=== PATIENT | male | born 1970 | race Caucasian/White ===

== ENCOUNTER 2020-05-14 13:29 | Outpatient (CLI) | payer MEDICARE | END 2020-05-14 23:59 | disposition home or self-care (01) | LOC: OPD 13:29 | PROVIDERS: ATTEND Internal Medicine Hematology & Oncology | DX: Z45.2 Encounter for adjustment and management of vascular access device (principal); C20 Malignant neoplasm of rectum | CPT/HCPCS: 36569; C1751 ==

== ENCOUNTER 2020-06-10 11:13 | Inpatient (IN) | payer MEDICARE, OTHER ==
[~2020-06-10] VITALS: Ht 167.6 cm; Wt 58.5 kg
--- NOTE | 2020-06-10 11:36 | NUR ---
ZULAY (SISTER) SAYS PT IS DRUG ADDICT, NEED TO BE MEDICATED AND IS FLIGHT RISK
[2020-06-10] MEDS ORDERED: DEXT20TA6 MT (11:41)
[2020-06-10] MEDS ORDERED: CYCL10TA9 MT (11:41)
[2020-06-10] MEDS ORDERED: HYDR-3980 MT (11:41)
--- NOTE | 2020-06-10 11:41 | NUR ---
ENGINEERING SECRETARY AT BEDSIDE
[2020-06-10 11:58] LABS: BASOPHILS % (AUTO) 0.3 % (0.0-2.0); EOSINOPHILS % (AUTO) 0.7 % (0.0-6.0); HEMATOCRIT 29 % (39-51); HEMOGLOBIN 9.1 g/dL (13.5-17.5); LYMPHOCYTES % (AUTO) 6.8 % (20.0-44.0); MEAN CORPUSCULAR HGB CONC 32 g/dl (31.0-36.0); MEAN CORPUSCULAR VOLUME 79 fL (80-96); MONOCYTES # (AUTO) 1.1 /CMM (0.1-1.30); MONOCYTES % (AUTO) 7.8 % (2.0-12.0); NEUTROPHILS # (AUTO) 12.4 /CMM (1.8-8.9); NEUTROPHILS % (AUTO) 84.4 % (43.0-81.0); PLATELET COUNT (AUTO) 399 /CMM (150-450); RED BLOOD CELL COUNT(AUTO) 3.65 MIL/uL (4.5-6.0); WHITE BLOOD COUNT (AUTO) 14.7 K/uL (4.3-11.0)
[2020-06-10] MEDS ORDERED: IV NS 0.9% 1,000 ML BAG IV ONE (12:00)
[2020-06-10 12:12] LABS: ALBUMIN 2.9 g/dL (3.4-5.0); BILIRUBIN,TOTAL 0.2 mg/dL (0.2-1.0); CREATININE 0.9 mg/dL (0.6-1.3); POTASSIUM 3.1 mmol/L (3.5-5.1)
--- NOTE | 2020-06-10 12:25 | NUR ---
PT'S DAUGHTER, NGUYEN, CALLED FOR A UPDATE.
[2020-06-10] MEDS ORDERED: NALO4SPR BNOSTRILS (12:26)
[2020-06-10] MEDS ORDERED: IOHEXOL-300 100 ML VIAL IV ONE (12:35)
[2020-06-10] MEDS ORDERED: IV NS 0.9% 250 ML IV ONE (12:35)
[2020-06-10] MEDS ORDERED: MORPHINE SULFATE INJ 2 MG/ML DISP.SYRIN IV ONE (13:30)
[2020-06-10] MEDS ORDERED: MORPHINE SULFATE INJ 4 MG/ML DISP.SYRIN ONE (13:31)
--- NOTE | 2020-06-10 14:09 | NUR ---
GOT BED 308-2
--- NOTE | 2020-06-10 14:20 | NUR ---
REPORT GIVEN TO JENI SUAREZ
--- NOTE | 2020-06-10 14:23 | NUR ---
DR WEBER INSTRUCTED TO PLACE PATIENT ON NPO, MADE PATIENT AND JENI RN AWARE, PATIENT VERBALIZED UNDERSTANDING OF INSTRUCTION
[2020-06-10] MEDS ORDERED: MAGNESIUM HYDROXIDE 30 ML UDC PO PRN (15:00)
[2020-06-10] MEDS ORDERED: ACETAMINOPHEN 325 MG TABLET PO PRN (15:00)
[2020-06-10] MEDS ORDERED: ONDANSETRON HCL/PF 4 MG/2 ML VIAL IVP PRN (15:00)
[2020-06-10] MEDS ORDERED: ZOLPIDEM TARTRATE 5 MG TABLET PO PRN (15:00)
[2020-06-10] MEDS ORDERED: MAG HYDROX/AL HYDROX/SIMETH 30 ML UDC PO PRN (15:00)
[2020-06-10] MEDS ORDERED: Z GUARD REMEDY 2 OZ OINT TP PRN (15:00)
[2020-06-10] MEDS ORDERED: HYDROCODONE/APAP 5/325MG 1 EACH TABLET PO PRN (15:00)
[2020-06-10] MEDS: MORPHINE SULFATE INJ 2 MG/ML DISP.SYRIN IV PRN ×2 (15:13→19:57)
[2020-06-10] MEDS: IV D5/0.45 NACL 1,000 ML IV PRN (15:15)
[2020-06-10] MEDS ORDERED: FEE PK DOSING 1 MIN EA MC ONE (15:21)
[2020-06-10] MEDS ORDERED: PIPERACILLIN /TAZOBACTAM 3.375 G in IV D5W 50 ML IV ONE (16:00)
[2020-06-10] MEDS: VANCOMYCIN 0.75 GM in IV D5W 250 ML IV SCH (16:48)
--- NOTE | 2020-06-10 18:00 | NUR ---
rn notes patient remains on room air, a/o x4 and was agitated. Calm now and asleep. Refused skin assessment and will try again later. Colostomy present. JUSTYN picc line present, able to take fluids and abx, but is not drawing any blood. 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 Might have used last night. Homeless at times. Pending consent for CT perc drain abscess, patient does not want to sign for now because he wants to talk to [facility] HEEL SEAT FILLER before anything. [facility] HEEL SEAT FILLER aware. IV d5 1/2 NS @ 75 ml per hour. Bed at the lowest setting, call light within reach, side rails up x2. NPO for now.
[2020-06-10] MEDS ORDERED: PEG 3350/NA SULF,BICARB,CL/KCL 4,000 ML BOTTLE PO ONE (19:00)
--- NOTE | 2020-06-10 19:00 | NUR ---
RN OPENING NOTES Received patient asleep on bed, on RA. No s/sx of discomfort noted at this time. Per report patient has just rested and calmed down after an episode of agitation. No skin assessment was done and defer the procedure at this time to give time for patient to rest. Will continue to monitor the patient closely.
[2020-06-10 20:00] VITALS: BP 151/77
[2020-06-10] MEDS: DOCUSATE SODIUM 100 MG CAPSULE PO SCH (20:02)
--- NOTE | 2020-06-10 20:45 | NUR ---
RN NOTES Followed up Rx for Gololiverly order. Awaiting for meds at this time.
--- NOTE | 2020-06-10 21:51 | NUR ---
RN NOTES Reinforced to patient the importance of taking Golytely. Pt verbalized "I will take it later." Pt noted asleep at this time, snoring. Will continue to monitor closely.
[2020-06-10] MEDS: PIPERACILLIN /TAZOBACTAM 3.375 G in IV D5W 100 ML IV SCH (22:09)
--- NOTE | 2020-06-10 22:30 | NUR ---
RN NOTES Pt was yelling for nurse to disconnect the IV line as he wanted to walk into the bathroom. Upon returning on bed, encourage pt resume IV ATB. Patient refused, turned his back and cover his head with the blanket. As of this time, patient has no intake of the Golytely. Will continue to encourage patient after a while.
[2020-06-11] MEDS: PIPERACILLIN /TAZOBACTAM 3.375 G in IV D5W 100 ML IV SCH ×4 (05:45→22:14)
--- NOTE | 2020-06-11 05:46 | NUR ---
RN NOTES Offered to patient due meds IV ATB at this time. Pt yelled the nurse "leave me alone" then turn his back and cover under the blanket.
--- NOTE | 2020-06-11 07:12 | NUR ---
RN CLOSING NOTES Pt refused meds but was able to convinced in AM. Administer IVF and IV ATB as ordered. Pt on bed comfortably. All nursing needs attended. Pt minimally took Golytely, not clear at this time. Dr. Collado notified with order to administer tap enema. Endorsed to the next shift.
[2020-06-11] MEDS: PANTOPRAZOLE 40 MG TABLET.DR PO SCH (07:30)
[2020-06-11 07:54] LABS: BASOPHILS % (AUTO) 0.1 % (0.0-2.0); EOSINOPHILS % (AUTO) 0.1 % (0.0-6.0); HEMATOCRIT 31 % (39-51); HEMOGLOBIN 9.8 g/dL (13.5-17.5); LYMPHOCYTES # (AUTO) 0.8 /CMM (0.8-4.8); LYMPHOCYTES % (AUTO) 4.3 % (20.0-44.0); MEAN CORPUSCULAR HGB CONC 31 g/dl (31.0-36.0); MEAN CORPUSCULAR VOLUME 77 fL (80-96); MONOCYTES # (AUTO) 1.6 /CMM (0.1-1.30); MONOCYTES % (AUTO) 8.4 % (2.0-12.0); NEUTROPHILS # (AUTO) 16.7 /CMM (1.8-8.9); NEUTROPHILS % (AUTO) 87.1 % (43.0-81.0); PLATELET COUNT (AUTO) 415 /CMM (150-450); RED BLOOD CELL COUNT(AUTO) 4.06 MIL/uL (4.5-6.0); WHITE BLOOD COUNT (AUTO) 19.2 K/uL (4.3-11.0)
[2020-06-11 07:59] LABS: CALCIUM, SERUM 8.8 mg/dL (8.5-10.1); CREATININE 0.7 mg/dL (0.6-1.3); MAGNESIUM 1.9 mg/dL (1.8-2.4); PHOSPHORUS 3.3 mg/dL (2.5-4.9)
[2020-06-11 08:00] VITALS: BP 155/74
[2020-06-11] MEDS: VANCOMYCIN 0.75 GM in IV D5W 250 ML IV SCH ×3 (08:00)
[2020-06-11 08:05] LABS: POTASSIUM 2.8 mmol/L (3.5-5.1)
--- NOTE | 2020-06-11 08:05 | NUR ---
MS RN NOTES HELD PO MEDS. PATIENT SCHEDULED FOR COLONOSCOPY
--- NOTE | 2020-06-11 08:30 | NUR ---
MS RN NOTES PATIENT'S SISTER: NGUYEN CALLED AND STATED THAT PATIENT LIVES IN [place] RENTING HIS OWN ROOM . PER NGUYEN, PATIENT IS A DRUG USER AND ETOH. PATIENT USED TO LIVE WITH FATHER BUT SINCE FATHER PAST AWAY IN 2016, PATIENT [place]IVES ON THE [address]RE[address]. PER NGUYEN, PATIENT HAS ADHD WELL. IN February PATIENT WAS ADMITTED IN [place] WITH AN EMERGENCY COLOSTOMY DONE BY DR. ANDREWS THEN 3 DAYS AFTER PATIENT LEFT [place] BECAUSE HE CAN GET BETTER DRUGS FOR PAIN ON THE STREET. THEN ON MARCH 04 OR PATIENT WENT BACK TO [place] THEN HE WAS TRANSFERRED TO [facility] IN [facility] THEN ON MARCH 21 HE WAS TRANSFERRED IN [place] WHERE PEOPLE CAN COME AND GO WITHOUT MEDICAL INVOLVEMENT PER NGUYEN. PER NGUYEN PATIENT IS ALSO BEING FOLLOWED BY DR. ESCOBAR. PATIENT ALSO HAS HISTORY OF NON-COMPLIANT WITH REFUSAL OF CARE AND WAS IN [facility] AND HE LEFT [place] WELL PER NGUYEN.
[2020-06-11] MEDS: DOCUSATE SODIUM 100 MG CAPSULE PO SCH ×2 (09:00→17:51)
--- NOTE | 2020-06-11 09:20 | NUR ---
MS RN NOTES PATIENT REFUSED TO HAVE CLOTHES REMOVED AND CHANGE INTO GOWN FOR COLONOSCOPY PROCEDURE DESPITE OF EDUCATION AND EXPLANATIONS PROVIDED.
--- NOTE | 2020-06-11 09:30 | NUR ---
MS RN NOTES PATIENT LEFT UNIT, WENT TO OR FOR COLONOSCOPY.
--- NOTE | 2020-06-11 09:41 | NUR ---
MS RN NOTES PATIENT BROUGHT TO UNIT AND CANCELLED PROCEDURE DUE TO LOW POTASSIUM LEVEL.
[2020-06-11] MEDS: POTASSIUM CHLORIDE 20 MEQ TAB.PRT.SR PO SCH ×2 (10:00→10:37)
--- NOTE | 2020-06-11 10:47 | NUR ---
MS RN NOTES PATIENT REFUSED POTASSIUM ORDERED DUE TO LOW POTASSIUM LEVEL. PATIENT STRONGLY REFUSED DESPITE OF EDUCATION AND EXPLANATIONS PROVIDED.
--- NOTE | 2020-06-11 12:35 | NUR ---
MS RN NOTES PATIENT AGREED TO HAVE VANCOMYCIN ADMINISTERED. PHARMACY MADE AWARE.
[2020-06-11] MEDS ORDERED: POTASSIUM CHLORIDE 10 MEQ/50 ML PREMIXED IVPB FOR PERIPHERAL LINE IV ONE (13:00)
[2020-06-11] MEDS: POTASSIUM CL. PREMIX PERIPHER. 50 ML IV SCH ×10 (13:33→22:47)
--- NOTE | 2020-06-11 13:41 | NUR ---
MS RN NOTES PATIENT REFUSED IV FLUIDS AND IV POTASSIUM.
[2020-06-11] MEDS: VANCOMYCIN 1 GM in IV D5W 250 ML IV SCH ×3 (13:55→20:38)
--- NOTE | 2020-06-11 14:00 | NUR ---
MS RN NOTES PATIENT THREW LUNCH TRAY AND BEDSIDE TABLE ON THE GROUND.
--- NOTE | 2020-06-11 14:02 | NUR ---
MS RN NOTES PATIENT REFUSED IV FLUIDS, IV ATB AND IV POTASSIUM. DR. BOWLES MADE AWARE OF PATIENT'S NON-COMPLIANT.
[2020-06-11] MEDS: MORPHINE SULFATE INJ 2 MG/ML DISP.SYRIN IV PRN ×2 (14:29→20:31)
--- NOTE | 2020-06-11 14:35 | NUR ---
MS RN NOTES PATIENT AGREED TO RECEIVED IV FLUIDS /ATB AND POTASSIUM.
[2020-06-11] MEDS ORDERED: HYDROCODONE/APAP 10/325MG 1 EA TABLET PO PRN (17:00)
[2020-06-11] MEDS: MORPHINE SULFATE SR 15 MG TABLET.SA PO SCH (18:11)
--- NOTE | 2020-06-11 19:05 | NUR ---
MS RN NOTE COVID TEST DONE, SENT TO LAB.
--- NOTE | 2020-06-11 19:15 | NUR ---
MS RN NOTES PATIENT RESTING COMFORTABLY IN BED. ASLEEP. AROUSABLE TO VERBAL AND TACTILE STIMULI. NO S/S OF RESPIRATORY DISTRESS. HOB ELEVATED. LEFT UPPER ARM PICC LINE INTACT INFUSING D5 1/2 NS AT 75 ML/HR. POTASSIUM 10 MEQ/50ML STILL INFUSING AT 50ML/HR DELFINO WELL. DURING THE SHIFT PATIENT WITH EPISODE OF NON-COMPLIANCE WITH CARE AND REFUSAL OF CARE, AGGRESSIVE, YELLING, AND THROWING ANYTHING WITHIN REACH.FREQUENT VISUAL CHECK DONE. BED IN LOWEST POSITION, LOCKED. BED ALARM ON. CALL LIGHT WITHIN REACH.IN NO APPARENT DISTRESS.
--- NOTE | 2020-06-11 19:30 | NUR ---
RN OPENING NOTES Received patient asleep on bed, on RA. No s/sx of discomfort noted at this time. Pt refused to be changed on bed. With Potassium 10mEq per 50ml bag 4 of 8 infusing well as ordered. Call light within easy reach. Will continue to monitor accordingly.
[2020-06-11] MEDS: IV D5/0.45 NACL 1,000 ML IV PRN (20:38)
[2020-06-11] MEDS: MIRTAZAPINE 15 MG TABLET PO SCH (22:14)
[2020-06-12] MEDS: MORPHINE SULFATE INJ 2 MG/ML DISP.SYRIN IV PRN ×5 (00:34→22:36)
[2020-06-12] MEDS: VANCOMYCIN 1 GM in IV D5W 250 ML IV SCH ×3 (04:59→20:12)
[2020-06-12] MEDS: PIPERACILLIN /TAZOBACTAM 3.375 G in IV D5W 100 ML IV SCH ×3 (06:01→21:29)
[2020-06-12] MEDS: PANTOPRAZOLE 40 MG TABLET.DR PO SCH (06:34)
--- NOTE | 2020-06-12 06:58 | NUR ---
RN CLOSING NOTES Patient asleep on bed. Good perineal care done. Due meds given as ordered. Pt is for MRI today, checklist initiated, patient verbalized to sign the form after breakfast. Still on pending colonoscopy, pt refused tap enema as ordered at this time. All nursing needs attended. Afebrile the whole shift. Medicated for pain, noted effective. Endorsed.
[2020-06-12 08:10] LABS: BASOPHILS % (AUTO) 0.1 % (0.0-2.0); EOSINOPHILS % (AUTO) 0.1 % (0.0-6.0); HEMATOCRIT 31 % (39-51); HEMOGLOBIN 9.8 g/dL (13.5-17.5); LYMPHOCYTES # (AUTO) 0.8 /CMM (0.8-4.8); LYMPHOCYTES % (AUTO) 4.2 % (20.0-44.0); MEAN CORPUSCULAR HGB CONC 32 g/dl (31.0-36.0); MEAN CORPUSCULAR VOLUME 77 fL (80-96); MONOCYTES # (AUTO) 1.8 /CMM (0.1-1.30); MONOCYTES % (AUTO) 10.1 % (2.0-12.0); NEUTROPHILS # (AUTO) 15.4 /CMM (1.8-8.9); NEUTROPHILS % (AUTO) 85.5 % (43.0-81.0); PLATELET COUNT (AUTO) 413 /CMM (150-450); RED BLOOD CELL COUNT(AUTO) 4.01 MIL/uL (4.5-6.0)
[2020-06-12 09:05] LABS: CALCIUM, SERUM 8.8 mg/dL (8.5-10.1); CREATININE 0.7 mg/dL (0.6-1.3); MAGNESIUM 2.1 mg/dL (1.8-2.4); PHOSPHORUS 2.6 mg/dL (2.5-4.9); POTASSIUM 3.2 mmol/L (3.5-5.1)
[2020-06-12 09:22] LABS: THYROID STIMULATING HORMONE 0.168 uIU/mL (0.358-3.74)
--- NOTE | 2020-06-12 10:00 | NUR ---
MS RN NOTES-- PT SCHEDULED TO GET A COLOSCOPY TOMORROW. PT REFUSES BOWEL PREP. DR. BOWLES MADE AWARE.
[2020-06-12] MEDS: DIVALPROEX SODIUM 125 MG CAP.SPRINK PO SCH ×3 (10:26→17:00)
[2020-06-12] MEDS: MORPHINE SULFATE SR 15 MG TABLET.SA PO SCH ×2 (10:26→20:12)
[2020-06-12] MEDS: DOCUSATE SODIUM 100 MG CAPSULE PO SCH ×2 (10:26→17:00)
[2020-06-12] MEDS: IV D5/0.45 NACL 1,000 ML IV PRN (10:32)
[2020-06-12] MEDS ORDERED: POTASSIUM CHLORIDE 20 MEQ TAB.PRT.SR PO ONE (14:30)
--- NOTE | 2020-06-12 15:34 | NUR ---
MS RN NOTES-- PT SCHEDULED TO GET A COLOSCOPY TOMORROW. PT REFUSES BOWEL PREP. NOTED WITH 100F TEMP, PT REFUSES TYL BUT WANTS WARM BLANKETS. EXPLAINED INTERVENTIONS TO LOWER TEMP, PT REFUSED. PT BECAME IMPULSIVE. DR. BOWLES MADE AWARE.
[2020-06-12 16:00] VITALS: BP 121/78
--- NOTE | 2020-06-12 18:17 | NUR ---
MS RN END OF SHIFT SUMMARY PT IS A/OX4, AFEBRILE. RESPIRATIONS ARE EVEN AND UNLABORED, NOT IN ANY ACUTE DISTRESS NOTED. PT IS VERY IMPULSIVE AND VERBALLY AGGRESSIVE. PAIN MANAGED BY MORPHINE IVP PRN. ABDOMEN IS SOFT AND NONDISTENDED, BOWEL SOUNDS ARE PRESENT IN ALL 4 QUADRANTS UPON AUSCULTATION. MULTIPLE BMS DURING SHIFT THROUGH RECTUM. COLOSTOMY IN PLACE, NOTED WITH FLATUS, NO BM. VOIDS. TOLERATING PO W/ NO C/O N/V, HOWEVER REFUSES TO EAT CLEAR LIQUID BROTH OTHER THAN JELLO AND JUICE. PICC LINE TO JUSTYN INTACT, DRESSING CDI. PT REFUSES MIVF MULTIPLE TIMES. EXPLAINED THE IMPORTANCE OF MIVF, STILL NONCOMPLIANT. FRIEND SLIME CALLED AND PT THREW PHONE ACROSS THE ROOM. CALL LIGHT IS LEFT WITHIN REACH. WILL MONITOR AND CONTINUE POC.
--- NOTE | 2020-06-12 19:15 | NUR ---
MS RN NOTES RECEIVED PT IN BED RESTING. PT A/O X3. RESPIRATIONS EVEN AND UNLABORED WITH NO S/S OF ACUTE DISTRESS OR SOB NOTED. PT NOTED WITH JUSTYN PICC LINE. NO COMPLAINTS OF PAIN AT THIS TIME. SAFETY MEASURES IN PLACE WITH BED IN LOWEST LOCKED POSITION WITH SIDE RAILS UP X2. CALL LIGHT WITHIN REACH. WILL CONTINUE TO MONITOR.
--- NOTE | 2020-06-12 19:47 | NUR ---
MS RN NOTES PT VERBALLY ABUSIVE. PT CURSING AND YELLING. PT STATING "YOU GUYS ARE IN FOR A LONG NIGHT, WAIT AND YOU WILL SEE." WILL CONTINUE TO MONITOR.
[2020-06-12 20:00] VITALS: BP 130/82
--- NOTE | 2020-06-12 20:12 | NUR ---
MS RN NOTES PT REFUSED IV ANTIBIOTICS WELL IV FLUIDS AT THIS TIME. PT STATED "WHAT YOUR GOING TO DO IS GIVE ME THE PAIN MEDICATION AND NOTHING ELSE AND LEAVE." WILL CONTINUE TO MONITOR.
--- NOTE | 2020-06-12 20:45 | NUR ---
MS RN NOTES PT NOTED WITH ELEVATED TEMP, PT REFUSED COOLING MEASURES AND TYLENOL. PT STATED "JUST GIVE ME A BLANKET AND GET OUT OF HERE." WILL CONTINUE TO MONITOR.
--- NOTE | 2020-06-12 20:50 | NUR ---
MS RN NOTES PT IN BATHROOM SCREAMING. WENT TO PT TO ASK WHAT IS WRONG. PT STATED "GET OUT OF HERE LEAVE ME ALONE, I DON'T WANT TO TALK TO ANYONE." WILL CONTINUE TO MONITOR.
--- NOTE | 2020-06-12 21:29 | NUR ---
MS RN NOTES PT REFUSED 2ND ANTIBIOTIC AT THIS TIME. PT STATED "I DON'T WANT TO BE HOOKED UP AT THIS TIME, I JUST WANT TO SLEEP, LEAVE ME ALONE." EXPLAINED THAT HE COULD BE HOOKED UP WHILE HE WAS SLEEPING AND PT STARTED YELLING AND TOLD ME TO GET OUT OF HIS ROOM. WILL CONTINUE TO MONITOR.
[2020-06-12] MEDS: MIRTAZAPINE 15 MG TABLET PO SCH ×2 (21:31→22:35)
--- NOTE | 2020-06-12 21:31 | NUR ---
MS RN NOTES PT REFUSED REMERON AT THIS TIME. WILL CONTINUE TO MONITOR.
--- NOTE | 2020-06-12 22:35 | NUR ---
MS RN NOTES PT CHANGED MIND ABOUT REMERON AT THIS TIME. WILL CONTINUE TO MONITOR.
--- NOTE | 2020-06-13 | NUR ---
MS RN NOTES PT IN BED RESTING WITH NO S/S OF ACUTE DISTRESS OR SOB NOTED. WILL CONTINUE TO MONITOR.
[2020-06-13] MEDS: VANCOMYCIN 1 GM in IV D5W 250 ML IV SCH ×3 (05:00→20:08)
[2020-06-13] MEDS: PIPERACILLIN /TAZOBACTAM 3.375 G in IV D5W 100 ML IV SCH ×3 (05:40→22:19)
--- NOTE | 2020-06-13 05:40 | NUR ---
MS RN NOTES PT REFUSED BOTH VANCO AND ZOSYN AT THIS TIME. PT STATED "I JUST WANT TO BE LEFT ALONE RIGHT NOW AND SLEEP," AND PT STARTED TO YELL. EXPLAINED TO PT THAT THE MEDICATION IS NEEDED TO GET BETTER, PT STATED "I KNOW, I KNOW JUST LEAVE ME ALONE, I DON'T WANT ANY OF THAT JUST LEAVE ME ALONE." WILL CONTINUE TO MONITOR.
[2020-06-13] MEDS: MORPHINE SULFATE INJ 2 MG/ML DISP.SYRIN IV PRN ×4 (06:06→18:16)
--- NOTE | 2020-06-13 06:55 | NUR ---
MS RN NOTES PT LEFT UNIT WITH SX. WILL CONTINUE TO MONITOR.
[2020-06-13 07:00] LABS: BASOPHILS % (AUTO) 0.2 % (0.0-2.0); EOSINOPHILS % (AUTO) 0.3 % (0.0-6.0); HEMATOCRIT 32 % (39-51); LYMPHOCYTES # (AUTO) 1.2 /CMM (0.8-4.8); LYMPHOCYTES % (AUTO) 8.2 % (20.0-44.0); MEAN CORPUSCULAR HGB CONC 31 g/dl (31.0-36.0); MEAN CORPUSCULAR VOLUME 77 fL (80-96); MONOCYTES # (AUTO) 1.6 /CMM (0.1-1.30); NEUTROPHILS % (AUTO) 80.3 % (43.0-81.0); PLATELET COUNT (AUTO) 447 /CMM (150-450); RED BLOOD CELL COUNT(AUTO) 4.13 MIL/uL (4.5-6.0)
[2020-06-13 07:18] LABS: CALCIUM, SERUM 8.8 mg/dL (8.5-10.1); CREATININE 0.7 mg/dL (0.6-1.3); MAGNESIUM 2.1 mg/dL (1.8-2.4); PHOSPHORUS 3.2 mg/dL (2.5-4.9); POTASSIUM 2.9 mmol/L (3.5-5.1)
--- NOTE | 2020-06-13 07:30 | NUR ---
MS RN OPENING NOTES PT WAS OUT TO SX FOR THE COLONOSCOPY UPON ROUNDS. NOT BACK YET. RECEIVED REPORT FROM FIRST GRADE TEACHER NURSE
--- NOTE | 2020-06-13 07:52 | NUR ---
MS RN NOTES WILL ENDORSE TO ONCOMING NURSE FOR DEVON.
[2020-06-13] MEDS ORDERED: DIVALPROEX SODIUM 125 MG CAP.SPRINK ONE (08:06)
--- NOTE | 2020-06-13 08:30 | NUR ---
BACK FROM COLONOSCOPY PT CAME BACK FROM COLONOSCOPY THIS AM WITH DR. RUBIO WITH ORDERS TO PUT PT ON REGULAR DIET. NOTED AND CARRIED OUT. PT ALREADY VERBALLY ABUSING, HE YELLED, "FOR THE 10TH FUCKING MADELYN, YOU'RE TAKING MY BLOOD PRESSURE?! I DONT UNDERSTAND WHY. JUST LEAVE ME THE FUCK ALONG AND GIVE ME SOME FUCKING FOOD. I NEED TO FUCKING EAT." EXPLAINED TO PT WE NEED TO CHECK HIS VS TO MAKE SURE HE IS OKAY. THEN HE REPLIED, "WHATEVER". VS CHECKED NOTED AT T-98.6, P-79, RR-18, BP-122/71, O2 SAT-96% ON ROOM AIR. PT ALSO REFUSED TO BE HOOKED UP ON HIS IV FLUIDS TO PREVENT DEHYDRATION. EXPLAINED RISKS AND BENEFITS X2. STILL REFUSED. SSAFETY PRECAUTIONS IN PLACE. BED LOCKED AND IN LOW POSITIOON. SIDE RAILS UPX2. BED ALARM ON. CALLL LIGHT WITHIN REACH.
[2020-06-13] MEDS: DOCUSATE SODIUM 100 MG CAPSULE PO SCH ×2 (08:40→16:25)
[2020-06-13] MEDS: PANTOPRAZOLE 40 MG TABLET.DR PO SCH (08:40)
[2020-06-13] MEDS: MORPHINE SULFATE SR 15 MG TABLET.SA PO SCH ×2 (08:41→20:19)
--- NOTE | 2020-06-13 08:45 | NUR ---
REFUSING IV FLUIDS PT REFUSED IV FLUIDS. DID NOT WANNA GET HOOKED UP ON THE TUBING. HE STATED, "OH HOW FUCKING SMART! YOU WANNA HOOK ME UP SO THAT I CAN SHIT MYSELF IN THE BED AND SO I WOULD HAVE TO CALL YOU EVERYTIME I NEED TO GO TO THE BATHROOM." INFORMED PT THAT CALL LIGHT IS RIGHT NEXT TO HIM, AND THAT ALL HE HAS TO DO IS PRESS IT AND THAT I WILL BE IN THE ROOM. HE REPLIED, "WHATEVER. DONT PUT IT ON ME." EXPLAINED RISKS AND BENEFITS. BUT PT IS NON RCEPTIVE AND IS VERBALLY ABUSIVE.
[2020-06-13] MEDS: DIVALPROEX SODIUM 125 MG CAP.SPRINK PO SCH ×3 (08:46→16:25)
--- NOTE | 2020-06-13 09:00 | NUR ---
REFUSED MRI OF PELVIS PT REFSED MRI. HE YELLED AND CURSED AT THE MRI TECHS WHEN THEY CAME TO PICK HIM UP. HE YELLED, "LEAVE ME ALONE FOR FUCKS SAKE!" AWARE
[2020-06-13] MEDS: POTASSIUM CHLORIDE 20 MEQ TAB.PRT.SR PO SCH ×2 (10:08→10:49)
--- NOTE | 2020-06-13 13:00 | NUR ---
REFUSED MRI OF PELVIS PT REFSED MRI AGAIN. HE YELLED AND CURSED AT THE MRI TECHS AGAIN, WHEN THEY CAME TO PICK HIM UP. HE YELLED, "LEAVE ME ALONE! COME BACK LATER. YOU PEOPLE CANT LEAVE ME ALONE FOR AT LEAST AN HOUR?!"
[2020-06-13] MEDS ORDERED: SOD FERRIC GLUC 125 MG in IV NS 0.9% 100 ML IV SCH (15:00)
--- NOTE | 2020-06-13 15:00 | NUR ---
REFUSED MRI OF PELVIS PT REFSED MRI AGAIN. HE YELLED AND CURSED AT THE MRI TECHS AGAIN, HE YELLED, "NOPE. NOT DOIN IT. GO AWAY! YOU FUCKING PEOPLE ARE TOO MUCH!"
--- NOTE | 2020-06-13 17:01 | NUR ---
MRI DR. BOWLES AND DR. ESCOBAR ARE AWARE OF PT REFSING MRI. I WENT BACK TO THE PT, I INFORMED HIM THAT IF HE DOES NOT DO THE MRI, THIS WOULD IMPEDE ANY PLANS FOR HIM TO GET BETTER AND IT WILL BE HARD FOR THE MDS TO DETERMINE HOW TO MOVE FORMWARD. AGAIN, PT GOT UPSET, HE STATED, "OK I KNOW WHAT YOU PEOPLE HAVE BEEN TELLING THE DOCTORS. YOU PEOPLE HAVE BEEN TEELING HIM THAT IM A PIECE OF SHIT. IM NOT REFUSING, DID YOU NOT SEE THAT YOU PEOPLE GOT ME HOOKED UP ON EVERYTHING, THATS WHY I DIDNT GO." I EXPLAINED TO PT THAT JUST BECAUSE HE IS HOOKED UP IN THE IV FLUIDS DOES NOT MEAN THAT SHE SHOULD NOT GO TO THE MRI. THEN PT YELLED, "YOU KNOW WHAT I DONT WANNA TALK ABOUT THIS SHIT ANYMORE. FINE, ILL DO THE MRI TOMORROW, JUST LEAVE ME ALONE.!"
--- NOTE | 2020-06-13 18:22 | NUR ---
MS RN CLOSING NOTES PT IN BED AWAKE, ALERT AND ORIENTED X3. NO CARDIAC OR RESP DISTRESS NOTED. NO SOB NOTED. SATURATING WELL ON ROOM AIR. PTS PAIN MANAGED THIS SHIFT, S/P COLONOSCOPY TODAY WITH DR. RUBIO. PT HAD ORDERS FOR STAT MRI, DR. ESCOBAR AND WILBUR AWARE. PT REFUSED ALL DAY TODAY. HE YELLED AND CURSE AT ME, AND THE TECHS EVERY SINGLE TIME THEY OFFERED TO DO THE MRI. IV ACCESS NOTED ON JUSTYN PICC LINE. INTACT AND PATENT AND FLUSHING WELL. SAFETY PRECAUTIONS IN PLACE. BED LOCKED AND IN LOW POSITION. SIDE RAILS UPX2. BED ALARM ON. CALL LIGHT WITHIN REACH.
--- NOTE | 2020-06-13 18:32 | NUR ---
3 ATTEMPTS TO BRING PATIENT DOWN FOR MRI.PATIENT SAYS COME BACK LATER OR REFUSES PER LABEL CUTTERTHOM MONAE.NURSE IS AWARE.
[2020-06-13] MEDS: MIRTAZAPINE 15 MG TABLET PO SCH (22:19)
[2020-06-14] MEDS ORDERED: IV NS 0.9% 1,000 ML IV PRN (01:30)
[2020-06-14] MEDS: VANCOMYCIN 1 GM in IV D5W 250 ML IV SCH (04:28)
[2020-06-14] MEDS: MORPHINE SULFATE INJ 2 MG/ML DISP.SYRIN IV PRN (04:38)
[2020-06-14] MEDS: PIPERACILLIN /TAZOBACTAM 3.375 G in IV D5W 100 ML IV SCH (05:43)
[2020-06-14 06:25] LABS: BASOPHILS # (AUTO) 0.1 /CMM (0.0-0.2); BASOPHILS % (AUTO) 0.4 % (0.0-2.0); EOSINOPHILS % (AUTO) 0.5 % (0.0-6.0); HEMATOCRIT 30 % (39-51); HEMOGLOBIN 9.5 g/dL (13.5-17.5); LYMPHOCYTES # (AUTO) 0.9 /CMM (0.8-4.8); LYMPHOCYTES % (AUTO) 6.5 % (20.0-44.0); MEAN CORPUSCULAR HGB CONC 32 g/dl (31.0-36.0); MEAN CORPUSCULAR VOLUME 77 fL (80-96); MONOCYTES # (AUTO) 1.7 /CMM (0.1-1.30); MONOCYTES % (AUTO) 12.5 % (2.0-12.0); NEUTROPHILS # (AUTO) 10.7 /CMM (1.8-8.9); NEUTROPHILS % (AUTO) 80.1 % (43.0-81.0); PLATELET COUNT (AUTO) 421 /CMM (150-450); RED BLOOD CELL COUNT(AUTO) 3.89 MIL/uL (4.5-6.0); WHITE BLOOD COUNT (AUTO) 13.3 K/uL (4.3-11.0)
--- NOTE | 2020-06-14 06:51 | NUR ---
MS RN NOTES PT IN BED RESTING. PT A/O X3. RESPIRATIONS EVEN AND UNLABORED WITH NO S/S OF ACUTE DISTRESS OR SOB NOTED THROUGHOUT SHIFT. PT NOTED WITH JUSTYN PICC LINE INFUSING NS @75CC/HR. NO COMPLAINTS OF PAIN AT THIS TIME. PT KEPT CLEAN, DRY, AND COMFORTABLE. SAFETY MEASURES IN PLACE WITH BED IN LOWEST LOCKED POSITION WITH SIDE RAILS UP X2. CALL LIGHT WITHIN REACH. WILL ENDORSE TO ONCOMING NURSE FOR DEVON.
--- NOTE | 2020-06-14 07:00 | NUR ---
MS RN NOTES RECEIVED PT IN BED RESTING AT THIS TIME. A/O X3. NO SOB NOTED. RESPIRATIONS EVEN AND UNLABORED. NO S/S OF ANY ACUTE DISTRESS NOTED. NO C/O PAIN AT THIS TIME. PT NOTED WITH JUSTYN PICC LINE, INTACT AND PATENT. COLOSTOMY IN PLACE. SAFETY PRECAUTIONS IN PLACE. BED IN LOWEST LOCKED POSITION, SIDE RAILS UP X2. HOB ELEVATED TO SEMI FOWLERS POSITION, CALL LIGHT WITHIN REACH. WILL CONTINUE TO MONITOR.
[2020-06-14 07:09] LABS: CALCIUM, SERUM 8.7 mg/dL (8.5-10.1); CREATININE 0.7 mg/dL (0.6-1.3); PHOSPHORUS 2.7 mg/dL (2.5-4.9); POTASSIUM 3.2 mmol/L (3.5-5.1)
[2020-06-14 08:00] VITALS: BP 115/71
[2020-06-14] MEDS: PANTOPRAZOLE 40 MG TABLET.DR PO SCH (08:27)
--- NOTE | 2020-06-14 09:00 | NUR ---
seen pt in his room , resting comfortably.
--- NOTE | 2020-06-14 09:00 | NUR ---
MS RN NOTES SEEN PT IN HIS ROOM, RESTING COMFORTABLY.
[2020-06-14] MEDS: DIVALPROEX SODIUM 125 MG CAP.SPRINK PO SCH (09:02)
[2020-06-14] MEDS: MORPHINE SULFATE SR 15 MG TABLET.SA PO SCH (09:02)
[2020-06-14] MEDS: DOCUSATE SODIUM 100 MG CAPSULE PO SCH (09:02)
--- NOTE | 2020-06-14 09:15 | NUR ---
received call from our security that pt eloped and security was not able to stop him to check for iv lines.
--- NOTE | 2020-06-14 09:15 | NUR ---
MS RN NOTES RECEIVED CALL FROM OUR SECURITY THAT PATIENT ELOPED AND SECURITY WAS NOT ABLE TO STOP HIM TO CHECK FOR IV LINES. CHARGE NURSE MADE AWARE.
--- NOTE | 2020-06-14 09:18 | NUR ---
Rn rail gang supervisor Indir informed, will follow protocol regarding elopement.
--- NOTE | 2020-06-14 09:25 | NUR ---
Dr. Mckeon informed about elopement.
--- NOTE | 2020-06-14 09:27 | NUR ---
called [place] [employer] per protocol to inform that pt eloped with his IV access. Incident number is #[id number]
[2020-06-14] MEDS ORDERED: POTASSIUM CHLORIDE 20 MEQ TAB.PRT.SR PO SCH (09:30)
--- NOTE | 2020-06-14 09:40 | NUR ---
pt's sister Delmis called, asking for his brother. She is informed about incident, Delmis stated that she is not surprised about elopement. According Delmis Pt came with his PICC line, due to his current chemo therapy treatment, and he knows how to take care of the line.
--- NOTE | 2020-06-14 10:15 | NUR ---
police officers [id number] and [id number] came, provided with information about pt.
[2020-06-14] MEDS ORDERED: SOD FERRIC GLUC 125 MG in IV NS 0.9% 100 ML IV SCH (14:00)
[2020-06-23] MEDS ORDERED: METR500T PO (13:40)
[2020-06-23] MEDS ORDERED: ENOX40DI SQ (13:40)
[2020-06-23] MEDS ORDERED: POLY17PO4 PO (13:40)
[2020-06-23] MEDS ORDERED: HYDR-4384 PO (13:40)
[2020-06-23] MEDS ORDERED: LACT-246 PO (13:40)
[2020-06-23] MEDS ORDERED: CEFA1PIG IV (13:40)
[2020-06-23] MEDS ORDERED: MIRT15TA PO (13:40)
== END 2020-06-14 09:15 | disposition left against medical advice (07) | DRG 375 ==
LOC: ER 11:18 → MED 14:26
PROVIDERS: ADMIT Student in an Organized Health Care Education/Training Program; ATTEND Student in an Organized Health Care Education/Training Program
PROC: 0DJD8ZZ Inspection of Lower Intestinal Tract, Via Natural or Artificial Opening Endoscopic (ICD-10-PCS; principal; 2020-06-14)
DX: C19 Malignant neoplasm of rectosigmoid junction (principal); K61.1 Rectal abscess; E87.1 Hypo-osmolality and hyponatremia; E44.0 Moderate protein-calorie malnutrition; C78.7 Secondary malignant neoplasm of liver and intrahepatic bile duct; C78.5 Secondary malignant neoplasm of large intestine and rectum; J90 Pleural effusion, not elsewhere classified; E87.6 Hypokalemia; K56.41 Fecal impaction; Z85.048 Personal history of other malignant neoplasm of rectum, rectosigmoid junction, and anus; Z79.899 Other long term (current) drug therapy; D72.829 Elevated white blood cell count, unspecified; D64.9 Anemia, unspecified; F11.10 Opioid abuse, uncomplicated; D50.9 Iron deficiency anemia, unspecified; D47.3 Essential (hemorrhagic) thrombocythemia; Z93.3 Colostomy status; F31.9 Bipolar disorder, unspecified; F17.210 Nicotine dependence, cigarettes, uncomplicated; I27.20 Pulmonary hypertension, unspecified
CPT/HCPCS: 36415; 71260-TC; 80048-TC; 80076-TC; 80202-TC; 82728-TC; 83540-TC; 83605-TC; 83690-TC; 83735-TC; 84100-TC; 84439-TC; 84443-TC; 85025-TC; 85610-TC; 87040-TC; 87081-TC; 93307-TC; G0378; J2270; J2543; J2704; J2916; J3370; J3480; J3490; J7030; J7050; J7060; Q9967

== ENCOUNTER 2020-06-16 20:35 | Inpatient (IN) | payer MEDICARE, OTHER ==
[~2020-06-16] VITALS: Ht 167.6 cm; Wt 45.4 kg
[~2020-06-16 20:35] MED LIST: CYCL10TA9 MT; DEXT20TA6 MT; HYDR-3980 MT; NALO4SPR BNOSTRILS
--- NOTE | 2020-06-16 20:45 | NUR ---
PT CAME TO THE ED C/O RECTAL PAIN DUE TO RECTAL CANCER. PT WAS DIAGNOSED 5 MONTHS AGO PER PT. PT ELOPED FROM [place] LAST 06/14/20. COLOSTOMY BAG NOTED. LAST BM X 2 HOURS AGO. PT AAOX4, RESPIRATIONS EVEN AND UNLABORED ON RA W/ NAD NOTED. PT CONNECTED TO THE CRANKSHAFT GRINDER AND POX.
--- NOTE | 2020-06-16 21:00 | NUR ---
BLOOD COLLECTED AND SENT TO LAB
--- NOTE | 2020-06-16 21:05 | NUR ---
PT UNABLE TO PROVIDE URINE AT THIS TIME. PA MADE AWARE
--- NOTE | 2020-06-16 21:29 | NUR ---
XRAY AT BEDSIDE
[2020-06-16] MEDS ORDERED: IV NS 0.9% 500 ML BAG IV ONE ×2 (21:30→22:30)
[2020-06-16] MEDS ORDERED: PIPERACILLIN /TAZOBACTAM 3.375 G in IV D5W 50 ML IV ONE (21:30)
[2020-06-16] MEDS ORDERED: MORPHINE SULFATE INJ 10 MG/ML DISP.SYRIN IV ONE (21:30)
[2020-06-16] MEDS ORDERED: ONDANSETRON HCL/PF 4 MG/2 ML VIAL IV ONE (21:30)
[2020-06-16 21:31] LABS: BASOPHILS % (AUTO) 0.2 % (0.0-2.0); EOSINOPHILS % (AUTO) 0.2 % (0.0-6.0); HEMATOCRIT 24 % (39-51); HEMOGLOBIN 7.6 g/dL (13.5-17.5); LYMPHOCYTES # (AUTO) 1.1 /CMM (0.8-4.8); LYMPHOCYTES % (AUTO) 7.2 % (20.0-44.0); MEAN CORPUSCULAR HGB CONC 32 g/dl (31.0-36.0); MEAN CORPUSCULAR VOLUME 77 fL (80-96); MONOCYTES # (AUTO) 1.9 /CMM (0.1-1.30); MONOCYTES % (AUTO) 12.9 % (2.0-12.0); NEUTROPHILS # (AUTO) 11.9 /CMM (1.8-8.9); NEUTROPHILS % (AUTO) 79.5 % (43.0-81.0); PLATELET COUNT (AUTO) 401 /CMM (150-450); RED BLOOD CELL COUNT(AUTO) 3.11 MIL/uL (4.5-6.0); WHITE BLOOD COUNT (AUTO) 14.9 K/uL (4.3-11.0)
[2020-06-16] MEDS ORDERED: MORPHINE SULFATE INJ 4 MG/ML DISP.SYRIN ONE (21:34)
[2020-06-16] MEDS ORDERED: ONDANSETRON HCL/PF 4 MG/2 ML VIAL ONE (21:34)
[2020-06-16] MEDS ORDERED: PIPERACILLIN /TAZOBACTAM 3.375 G VIAL IV ONE (21:34)
[2020-06-16 21:38] LABS: ALBUMIN 2.2 g/dL (3.4-5.0); BILIRUBIN,DIRECT 0.1 mg/dL (0.0-0.2); BILIRUBIN,TOTAL 0.2 mg/dL (0.2-1.0); CALCIUM, SERUM 8.5 mg/dL (8.5-10.1); POTASSIUM 2.9 mmol/L (3.5-5.1); TOTAL PROTEIN, SERUM 6.4 g/dL (6.4-8.2)
[2020-06-16 21:49] LABS: BAND % (MANUAL) 8 % (0.0-5.0); LYMPHOCYTES % (MANUAL) 6 % (16-48); MONOCYTES % (MANUAL) 11 % (0-11.0); NEUTROPHILS % (MANUAL) 75 (42-76)
--- NOTE | 2020-06-16 21:51 | NUR ---
COVID SWAB SENT TO LAB
--- NOTE | 2020-06-16 22:28 | NUR ---
MARSHALL VILLAVICENCIO.
[2020-06-16] MEDS ORDERED: POTASSIUM CL. PREMIX PERIPHER. 200 ML ONE (22:31)
[2020-06-16] MEDS: POTASSIUM CL. PREMIX PERIPHER. 50 ML IV SCH ×2 (22:41→23:42)
[2020-06-17] MEDS: POTASSIUM CL. PREMIX PERIPHER. 50 ML IV SCH ×2 (01:09→02:11)
--- NOTE | 2020-06-17 03:05 | NUR ---
NURSE WILL CALL BACK
[2020-06-17] MEDS ORDERED: Z GUARD REMEDY 2 OZ OINT TP PRN (03:30)
[2020-06-17] MEDS ORDERED: ONDANSETRON HCL/PF 4 MG/2 ML VIAL IVP PRN (03:30)
[2020-06-17] MEDS ORDERED: ACETAMINOPHEN 325 MG TABLET PO PRN (03:30)
--- NOTE | 2020-06-17 03:30 | NUR ---
REPORT GIVEN TO ERICK CROCKETT FOR DEVON
[2020-06-17 05:35] VITALS: BP 99/56
--- NOTE | 2020-06-17 05:38 | NUR ---
PT TRANSFERRED TO ROOM IN STABLE CONDITION
--- NOTE | 2020-06-17 05:45 | NUR ---
ADMISSION NOTE. PATIENT ADMITTED TO [facility]; FOR DX OF COLORECTAL CANCER AND METASTATIC COLON CA. CC WAS PAIN IN RECTUM. PT AXOX3. PT ORIENTED TO ROOM. NEW ORDERS RECIEVED FROM DR. MADELYN IVORY. PT VS WNL. WILL CONT TO MONITOR.
[2020-06-17] MEDS: POLYETHYLENE GLYCOL 3350 17 GM POWD.PACK PO SCH ×2 (06:05→22:00)
--- NOTE | 2020-06-17 07:30 | NUR ---
MS/RN OPENING NOTES Received patient resting comfortably in bed, A&O x 3. Denies and pain and discomfort at this time. Breathing even and non-labored on RA, no SOB noted. No cardiac distress noted. IV access located on L FA #[id number], patent and intact, and flushing well. L PICC noted as well, patent, intact, and flushing well. No s/s of infiltration, bleeding, infection noted on the site. Sensation from all peripheral extremities intact. Fall precautions maintained. Refused to do skin assessment. Will continue to monitor patient for any changes of condition. Addendum: 06/17/20 at 1341 by ANDIE GOLDMAN RN CORRECTION: R FA #[id number] NOTED, NOT L FA.
--- NOTE | 2020-06-17 07:30 | NUR ---
MS/RN OPENING NOTES CONT. Colostomy bag in place, brown liquid stool noted. Patient states he does not want to be touched or bothered at the moment.
[2020-06-17 08:00] LABS: BASOPHILS % (AUTO) 0.1 % (0.0-2.0); EOSINOPHILS % (AUTO) 0.2 % (0.0-6.0); HEMATOCRIT 24 % (39-51); HEMOGLOBIN 7.7 g/dL (13.5-17.5); LYMPHOCYTES # (AUTO) 0.8 /CMM (0.8-4.8); MEAN CORPUSCULAR HGB CONC 32 g/dl (31.0-36.0); MEAN CORPUSCULAR VOLUME 77 fL (80-96); MONOCYTES # (AUTO) 1.8 /CMM (0.1-1.30); MONOCYTES % (AUTO) 12.2 % (2.0-12.0); NEUTROPHILS # (AUTO) 12.6 /CMM (1.8-8.9); NEUTROPHILS % (AUTO) 82.5 % (43.0-81.0); PLATELET COUNT (AUTO) 395 /CMM (150-450); RED BLOOD CELL COUNT(AUTO) 3.18 MIL/uL (4.5-6.0); WHITE BLOOD COUNT (AUTO) 15.2 K/uL (4.3-11.0)
--- NOTE | 2020-06-17 08:00 | NUR ---
MS/RN NOTES When asked what home medications he takes, he states "why am I going to talk to you about my home medications? I only want pain medications." Unable to acquire information regarding home medications, notified Ophelia ANTHONY and pharmacy.
[2020-06-17 08:17] LABS: CALCIUM, SERUM 8.3 mg/dL (8.5-10.1); CREATININE 0.8 mg/dL (0.6-1.3); MAGNESIUM 2.2 mg/dL (1.8-2.4); PHOSPHORUS 2.8 mg/dL (2.5-4.9); POTASSIUM 3.5 mmol/L (3.5-5.1)
[2020-06-17] MEDS ORDERED: AMPHET ASP/AMPHET/D-AMPHET 10 MG TABLET PO SCH ×2 (09:00→17:00)
[2020-06-17] MEDS: ENOXAPARIN SODIUM 40 MG/0.4 ML DISP.SYRIN SQ SCH ×2 (09:00→09:28)
--- NOTE | 2020-06-17 09:00 | NUR ---
MS/RN NOTES Patient refuses to take lovenox, says "he's already in too much pain." Patient reports a 7/10 dull rectal pain, gave norco. Will continue to monitor patient for any changes in condition.
[2020-06-17] MEDS: HYDROCODONE/APAP 10/325MG 1 EA TABLET PO PRN ×3 (09:30→23:25)
[2020-06-17] MEDS: MORPHINE SULFATE INJ 2 MG/ML DISP.SYRIN IV PRN ×3 (12:02→21:13)
[2020-06-17] MEDS: SOD FERRIC GLUC 125 MG in IV NS 0.9% 100 ML IV SCH (15:08)
--- NOTE | 2020-06-17 15:58 | NUR ---
MS/RN NOTES CHANGE CODE STATUS TO FULL CODE, RECONCILED WITH CHARGE NURSE DEBBIE. NO DOCUMENTATIONS NOTED FOR DNR.
[2020-06-17] MEDS: ENSURE ENLIVE 237 ML LIQUID (VANILLA) PO SCH (17:04)
--- NOTE | 2020-06-17 19:43 | NUR ---
MS/RN CLOSING NOTES Received patient resting comfortably in bed, A&O x 3. Denies and pain and discomfort at this time, last norco given at 1836. Breathing even and non-labored on RA. No respiratory or cardiac distress noted. IV access located on R FA #[id number], patent and intact, and flushing well. L PICC noted as well, patent, intact, and flushing well. Colostomy bag in place, clean and intact, with brown output of 10 cc noted. Sensation from all peripheral extremities intact. Fall precautions maintained. Instructed patient to use call light when in need of assistance. Awaiting for orders from Dr. Blanchard. Will endorse to forepart rounder nurse.
--- NOTE | 2020-06-17 19:45 | NUR ---
MS/RN OPENING NOTES RECEIVED PATIENT IN BED RESTING. PATIENT IS ALERT AND ORIENTED X 3. PATIENT STATES PAIN AROUND RECTUM AREA 10/10. NO SOB OR RESPIRATORY DISTRESS NOTED. PATIENT BREATHING IS EVEN AND UNLABORED. PATIENT REFUSED BODY ASSESSMENT AT THIS TIME, DID NOT WANT COLOSTOMY BAG TO BE CHECKED. PATIENT HAS RIGHT FOREARM #18 G INTACT AND LEFT PICC ON ARM INTACT. SAFETY MEASURES ARE IN PLACE, BED IS LOCKED AND PLACE IN THE LOW POSITION SIDE RAILS UP X 2, ALARM ON. CALL LIGHT IS WITHIN REACH. WILL CONTINUE TO MONITOR PATIENT THOUGHT OUT SHIFT.
[2020-06-17 20:00] VITALS: BP 124/60
--- NOTE | 2020-06-17 21:15 | NUR ---
MS/RN NOTES PATIENT WAS COMPLAINING OF PAIN AT RECTAL AREA. MORPHINE 4 MG IVP WAS GIVEN. V/S WITHIN NORMAL LIMITS. WILL CONTINUE TO MONITOR PATIENT.
--- NOTE | 2020-06-17 23:25 | NUR ---
MS/RN NOTES PATIENT WAS COMPLAINING OF PAIN AT RECTAL AREA. NORCO 10-325 PO WAS GIVEN. V/S WITHIN NORMAL LIMITS. WILL CONTINUE TO MONITOR PATIENT.
[2020-06-18] MEDS: MORPHINE SULFATE INJ 2 MG/ML DISP.SYRIN IV PRN ×4 (01:28→23:19)
--- NOTE | 2020-06-18 01:30 | NUR ---
MS/RN NOTES PATIENT WAS COMPLAINING OF PAIN AT RECTAL AREA. MORPHINE 4 MG IVP WAS GIVEN. V/S WITHIN NORMAL LIMITS. WILL CONTINUE TO MONITOR PATIENT.
[2020-06-18] MEDS: HYDROCODONE/APAP 10/325MG 1 EA TABLET PO PRN ×2 (04:39→20:16)
--- NOTE | 2020-06-18 04:40 | NUR ---
MS/RN NOTES PATIENT WAS COMPLAINING OF PAIN AT RECTAL AREA. NORCO 10-325 PO WAS GIVEN. V/S WITHIN NORMAL LIMITS. WILL CONTINUE TO MONITOR PATIENT.
--- NOTE | 2020-06-18 07:05 | NUR ---
MS/RN CLOSING NOTES PATIENT IN BED RESTING. PATIENT IS ALERT AND ORIENTED X 3. NO SOB OR RESPIRATORY DISTRESS NOTED. PATIENT BREATHING IS EVEN AND UNLABORED. PATIENT REFUSED BODY ASSESSMENT AT THIS TIME, DID NOT WANT COLOSTOMY BAG TO BE CHECKED DURING SHIFT. PATIENT REFUSED CARE FROM NURSE AND CUSTOMER ACCOUNT SPECIALIST. PATIENT DID NOT WAS TO TAKE PM MEDS. PATIENT DID NOT WANT TO BE CLEAN OR LINENS CHANGED. PATIENT IS CONSTANTLY ASKING FOR PAIN MEDS. PATIENT HAS RIGHT FOREARM #18 G INTACT AND LEFT PICC ON ARM INTACT. PATIENT NEEDS HAVE BEEN MET TO THE BEST OF STAFF ABILITY. PATIENT IS IN NO DISTRESS. SAFETY MEASURES ARE IN PLACE, BED IS LOCKED AND PLACE IN THE LOW POSITION SIDE RAILS UP X 2, ALARM ON. CALL LIGHT IS WITHIN REACH. WILL ENDORSE CARE TO DAY SHIFT NURSE.
[2020-06-18 08:00] VITALS: BP 119/71
[2020-06-18 08:03] LABS: CALCIUM, SERUM 8.7 mg/dL (8.5-10.1); CREATININE 0.7 mg/dL (0.6-1.3); MAGNESIUM 2.1 mg/dL (1.8-2.4); PHOSPHORUS 3.2 mg/dL (2.5-4.9); POTASSIUM 3.2 mmol/L (3.5-5.1)
[2020-06-18 08:08] LABS: BASOPHILS % (AUTO) 0.1 % (0.0-2.0); EOSINOPHILS % (AUTO) 0.1 % (0.0-6.0); HEMATOCRIT 27 % (39-51); HEMOGLOBIN 8.4 g/dL (13.5-17.5); LYMPHOCYTES # (AUTO) 0.9 /CMM (0.8-4.8); LYMPHOCYTES % (AUTO) 4.1 % (20.0-44.0); MEAN CORPUSCULAR HGB CONC 31 g/dl (31.0-36.0); MEAN CORPUSCULAR VOLUME 77 fL (80-96); MONOCYTES % (AUTO) 8.5 % (2.0-12.0); NEUTROPHILS # (AUTO) 20.2 /CMM (1.8-8.9); NEUTROPHILS % (AUTO) 87.2 % (43.0-81.0); PLATELET COUNT (AUTO) 493 /CMM (150-450); RED BLOOD CELL COUNT(AUTO) 3.51 MIL/uL (4.5-6.0); WHITE BLOOD COUNT (AUTO) 23.2 K/uL (4.3-11.0)
[2020-06-18] MEDS: ENOXAPARIN SODIUM 40 MG/0.4 ML DISP.SYRIN SQ SCH (09:00)
[2020-06-18] MEDS: ENSURE ENLIVE 237 ML LIQUID (VANILLA) PO SCH ×3 (09:00→17:13)
[2020-06-18] MEDS ORDERED: PIPERACILLIN /TAZOBACTAM 3.375 G in IV D5W 50 ML IV ONE (09:30)
[2020-06-18] MEDS: POTASSIUM CHLORIDE 20 MEQ TAB.PRT.SR PO SCH ×2 (10:52→12:21)
[2020-06-18] MEDS ORDERED: GADOTERIDOL 279.3 MG/ML VIAL IV ONE (15:35)
[2020-06-18] MEDS: SOD FERRIC GLUC 125 MG in IV NS 0.9% 100 ML IV SCH (15:43)
[2020-06-18 16:00] VITALS: BP 133/79
[2020-06-18] MEDS: PIPERACILLIN /TAZOBACTAM 3.375 G in IV D5W 100 ML IV SCH ×2 (17:24→23:58)
--- NOTE | 2020-06-18 18:00 | NUR ---
medicated several times for pain,surgical consents signed and potassium replacements given.had mri today.sister calling in several times to check on pt.
[2020-06-18 20:00] VITALS: BP 107/67
--- NOTE | 2020-06-18 20:00 | NUR ---
MS/RN OPENING NOTE Received patient awake in bed. A/O x3. Breathing even, clear, unlabored. No signs of acute distress or SOB. Patient c/o pain rating 10 in rectal region. Prescribed morphine prn given at 2319. Patient refused assessment at this time. IV site right forearm 18g patent, intact. JUSTYN midline patent and intact, no signs of infiltration. Bed in low position, wheels locked, side rails up x2, call light within reach.
[2020-06-18] MEDS: POLYETHYLENE GLYCOL 3350 17 GM POWD.PACK PO SCH (22:00)
[2020-06-19] VITALS (8 sets, daily range): BP systolic 105–127; BP diastolic 57–77
--- NOTE | 2020-06-19 03:30 | NUR ---
MS/RN NOTE Patient c/o pain level 10 in rectum region. Gave prescribed morphine as ordered.
--- NOTE | 2020-06-19 05:30 | NUR ---
RN NOTES PT. REFUSING MORNING CARE , EVEN THE WHOLE BED WAS DIRTY AND WET, EXPLAINED THE IMPORTANCE OF MORNING CARE BUT PT. WAS REFUSING AND CURSING US
[2020-06-19] MEDS: PIPERACILLIN /TAZOBACTAM 3.375 G in IV D5W 100 ML IV SCH ×3 (06:28→23:28)
--- NOTE | 2020-06-19 06:37 | NUR ---
MS/RN CLOSING NOTE Patient resting in bed. A/O x3. Breathing even, unlabored. Unable to assess body, patient refused. IV site right forearm 18g saline locked, patent, intact. JUSTYN picc line patent intact, running zosyn 25 ml/hr @ 0630 as prescribed. Patient NPO after midnight for 729 procedure. Bed in low position, wheels locked, side rails up x2, call light within reach. Will endorse to oncoming nurse.
--- NOTE | 2020-06-19 06:45 | NUR ---
RN NOTES PT. AGREED TO BE CLEAN AND THE OR STAFF ALREADY CAME TO PICK HIM UP, PT. AGREED TO BE CLEAN BUT REFUSED HIS BOTTOM TO BE CLEAN, EXPLAINED THE IMPORTANCE AND BENEFITS OF DOING MORNING CARE . PT. AGREED
[2020-06-19 07:02] LABS: BASOPHILS # (AUTO) 0.1 /CMM (0.0-0.2); BASOPHILS % (AUTO) 0.4 % (0.0-2.0); EOSINOPHILS % (AUTO) 0.3 % (0.0-6.0); HEMATOCRIT 26 % (39-51); HEMOGLOBIN 8.3 g/dL (13.5-17.5); LYMPHOCYTES # (AUTO) 1.2 /CMM (0.8-4.8); LYMPHOCYTES % (AUTO) 8.4 % (20.0-44.0); MEAN CORPUSCULAR HGB CONC 32 g/dl (31.0-36.0); MEAN CORPUSCULAR VOLUME 77 fL (80-96); MONOCYTES # (AUTO) 1.1 /CMM (0.1-1.30); NEUTROPHILS % (AUTO) 82.9 % (43.0-81.0); PLATELET COUNT (AUTO) 519 /CMM (150-450); WHITE BLOOD COUNT (AUTO) 14.4 K/uL (4.3-11.0)
[2020-06-19] MEDS ORDERED: ANESTHESIA TRAY IN PYXIS 1 EA TRAY MC ONE (07:07)
[2020-06-19 07:11] LABS: CALCIUM, SERUM 8.8 mg/dL (8.5-10.1); CREATININE 0.8 mg/dL (0.6-1.3); MAGNESIUM 2.1 mg/dL (1.8-2.4); PHOSPHORUS 3.7 mg/dL (2.5-4.9); POTASSIUM 3.3 mmol/L (3.5-5.1)
[2020-06-19] MEDS ORDERED: FENTANYL PF 250MCG/5ML AMPUL ONE (07:23)
[2020-06-19] MEDS ORDERED: KETAMINE HCL (500MG/10ML) 50 MG/ML VIAL ONE (07:24)
[2020-06-19] MEDS ORDERED: FLUMAZENIL 0.5 MG VIAL ONE (07:24)
[2020-06-19] MEDS ORDERED: MIDAZOLAM HCL 2 MG/2ML VIAL ONE (07:24)
--- NOTE | 2020-06-19 07:30 | NUR ---
ERICK MS NOTES PT CURRENTLY AT THE O[facility] FOR SURGERY.
[2020-06-19] MEDS ORDERED: METRONIDAZOLE 500MG/ NS 100ML 100 ML IV ONE (08:19)
[2020-06-19] MEDS: ENSURE ENLIVE 237 ML LIQUID (VANILLA) PO SCH ×3 (09:00→16:22)
[2020-06-19] MEDS: ENOXAPARIN SODIUM 40 MG/0.4 ML DISP.SYRIN SQ SCH (09:00)
--- NOTE | 2020-06-19 09:00 | NUR ---
RN MS NOTES MEDS NON ADMIN, PT STILL AT THE O.R.
--- NOTE | 2020-06-19 09:46 | NUR ---
RN MS NOTES RECEIVED PT FROM O.R. STAFF, PT STILL SLEEPY, ABLE TO VERBALIZE NEEDS, NO COMPLAINT AT THIS TIME, VITAL SIGNS STABLE, POST OP ORDERS RECEIVED FROM MD, KEPT PT WARM, WILL CONTINUE TO MONITOR.
[2020-06-19] MEDS: POTASSIUM CHLORIDE 20 MEQ TAB.PRT.SR PO SCH ×3 (11:28→13:00)
--- NOTE | 2020-06-19 12:18 | NUR ---
RN MS NOTES ENSURE NOT GIVEN, PT ON CLEAR LIQUID DIET.
[2020-06-19] MEDS: IV D5/0.45 NACL W/20 MEQ KCL 1L IV PRN ×2 (12:19)
--- NOTE | 2020-06-19 12:30 | NUR ---
RN MS NOTES PT IN BED, RESTING, EASY TO AROUSE, NO COMPLAINT OF PAIN AT THIS TIME, RESPIRATIONS NORMAL, STARTED ON IV FLUIDS ORDERED, KEPT REGIONAL ACCOUNT MANAGER BED, F/C DRAINING WELL WITH CLEAR, YELLOW URINE, SEEN BY DR. GEE.
[2020-06-19] MEDS: SOD FERRIC GLUC 125 MG in IV NS 0.9% 100 ML IV SCH (14:53)
[2020-06-19] MEDS ORDERED: POTASSIUM CHLORIDE 20 MEQ TAB.PRT.SR PO ONE (15:00)
[2020-06-19] MEDS: oxyCODONE/APAP (5/325 MG) 1 UDTAB TABLET PO PRN ×2 (15:19→19:59)
--- NOTE | 2020-06-19 18:22 | NUR ---
RN MS NOTES PT IN BED, RESTING, ALERT AND ORIENTED, ABLE TO MAKE NEEDS KNOWN, NO COMPLAINT OF PAIN AT THIS TIME, VITAL SIGNS STABLE, RESPIRATIONS NORMAL, IV FLUIDS INFUSING WELL, CALL LIGHT WITHIN REACH, KEPT WARM AND COMFORTABLE IN BED, F/C DRAINING WELL, ALL NEEDS ATTENDED.
--- NOTE | 2020-06-19 19:45 | NUR ---
RN NOTES RECEIVED PT. AWAKE ON BED, A/OX3, NON-COMPLIANT, NOTICED HIS TRAY WAS ON THE FLOOR, PT. THREW IT.. ASKED THE PATIENT WHY HE THREW IT , PT REFUSED TO ANSWER. TALKED TO THE PATIENT AND EXPLAINED TO HIM THAT IF HE NEEDS SOMETHING HE JUST PRESS URMILA CALL LIGHT AND HE DOESN'T NEED TO THROW EVERYTHING ON THE FLOOR, PT REFUSED TO LISTEN. PT. ALSO REFUSED SKIN ASSESSMENT, DOESN'T LET US CHECKED HIS NEW COLOSTOMY., CALL LIGHT WITHIN REACH, SIDERAILSUPX2, CONTINUE TO MONITOR
--- NOTE | 2020-06-19 20:01 | NUR ---
MS/RN NOTE Patient c/o pain level 10 in rectum. Gave percocet as prescribed. Will continue to monitor.
[2020-06-19] MEDS: POLYETHYLENE GLYCOL 3350 17 GM POWD.PACK PO SCH (22:00)
[2020-06-19] MEDS: MORPHINE SULFATE INJ 4 MG/ML DISP.SYRIN IV PRN (22:12)
[2020-06-20] MEDS: oxyCODONE/APAP (5/325 MG) 1 UDTAB TABLET PO PRN ×2 (03:03→11:30)
--- NOTE | 2020-06-20 03:05 | NUR ---
MS/RN NOTE Patient c/o pain level 10 in rectum area. Gave prescribed percocet as ordered. Will continue to monitor.
[2020-06-20] MEDS: PIPERACILLIN /TAZOBACTAM 3.375 G in IV D5W 100 ML IV SCH ×3 (06:02→22:47)
--- NOTE | 2020-06-20 06:37 | NUR ---
MS/RN CLOSING NOTE Patient is asleep in bed. Breathing even, unlabored.IV site right forearm 18g saline locked. Patent, intact, no signs of infiltration. JUSTYN PICC line patent, intact, no signs of infiltration. Running zosyn 25 ml/hr, patient tolerating well. Unable to check for bowel movement, patient refused. Unable to assess body, patient refused. Joe catheter draining clear, yellow, urine. Urine output 1250 ml. Bed in low position, wheels locked, side rails up x2, call light within reach. Will endorse to oncoming nurse.
--- NOTE | 2020-06-20 07:35 | NUR ---
rn notes patient received on room air, no sob noted, f/c present at this time, on clear liquids. JUSTYN picc line present. colostomy x2 present. Plan is to hold outpatient chemotherpay XELOX at this time while infection is being controlled. Bed at the lowest setting, call light within reach, side rails up x2.
[2020-06-20] MEDS: ENSURE ENLIVE 237 ML LIQUID (VANILLA) PO SCH ×3 (08:26→17:08)
[2020-06-20] MEDS: ENOXAPARIN SODIUM 40 MG/0.4 ML DISP.SYRIN SQ SCH (08:26)
[2020-06-20 10:01] LABS: BASOPHILS % (AUTO) 0.1 % (0.0-2.0); EOSINOPHILS % (AUTO) 0.1 % (0.0-6.0); HEMATOCRIT 25 % (39-51); LYMPHOCYTES # (AUTO) 0.9 /CMM (0.8-4.8); LYMPHOCYTES % (AUTO) 6.1 % (20.0-44.0); MEAN CORPUSCULAR HGB CONC 32 g/dl (31.0-36.0); MEAN CORPUSCULAR VOLUME 77 fL (80-96); MONOCYTES # (AUTO) 0.8 /CMM (0.1-1.30); MONOCYTES % (AUTO) 5.7 % (2.0-12.0); NEUTROPHILS # (AUTO) 12.8 /CMM (1.8-8.9); PLATELET COUNT (AUTO) 479 /CMM (150-450); WHITE BLOOD COUNT (AUTO) 14.5 K/uL (4.3-11.0)
[2020-06-20 10:33] LABS: CALCIUM, SERUM 8.1 mg/dL (8.5-10.1); CREATININE 0.9 mg/dL (0.6-1.3); MAGNESIUM 1.7 mg/dL (1.8-2.4); PHOSPHORUS 3.3 mg/dL (2.5-4.9); POTASSIUM 3.4 mmol/L (3.5-5.1)
[2020-06-20] MEDS: IV D5/0.45 NACL W/20 MEQ KCL 1L IV PRN ×4 (11:26→22:48)
[2020-06-20] MEDS: MORPHINE SULFATE INJ 4 MG/ML DISP.SYRIN IV PRN ×5 (11:58→22:47)
[2020-06-20] MEDS: SOD FERRIC GLUC 125 MG in IV NS 0.9% 100 ML IV SCH (14:58)
--- NOTE | 2020-06-20 18:53 | NUR ---
rn closing notes patient received on room air, no sob noted, f/c present at this time, on clear liquids. JUSTYN picc line present. colostomy x2 present. Plan is to hold outpatient chemotherpay XELOX at this time while infection is being controlled. Bed at the lowest setting, call light within reach, side rails up x2. Pain medications given per patient request. Patient comfortable all shift. 1;1 sitter.
--- NOTE | 2020-06-20 19:30 | NUR ---
RN PM OPENING NOTE. REPORT RECIEVED FROM JENI RN. PATIENT RECIEVED ON RA, NO SOB CHEST HAS EQUAL RISE AND FALL. PER REPORT PATIENT IS TOLERATING CLEAR LIQUID DIET. JUSTYN PICC LINE PRESENT PATIENT REFUSING TO ALLOW ME TO LOOK AT COLOSTOMY SITES. DEMANDING PAIN MEDICINE. REVIEWED PAIN MANAGEEMTN SCHEDULED SENIOR ANDROID SOFTWARE ENGINEER ALEKSANDR AT THE BEDSIDE. PER REPORT COLOSTOMY X2 PRESENT. BED LOW SETTING CALL LIGHT IN REACH SRX2. WILL CONT TO MONITOR.
[2020-06-20 20:30] VITALS: BP 124/79
[2020-06-20] MEDS: POLYETHYLENE GLYCOL 3350 17 GM POWD.PACK PO SCH (22:00)
--- NOTE | 2020-06-20 22:47 | NUR ---
PATIENT OFFERED TO BE CLEANED UP AND ASSESSS SKIN CONDITION. REFUSED TO BE CLEANED UP. HAVE COLOSTOMY EMPTIED. STATES "NO, I DON'T WANT TO DO THAT RIGHT NOW. " PT REFUSED SKIN ASSESSMENT
--- NOTE | 2020-06-21 01:00 | NUR ---
AGAIN PATIENT OFFERED TO BE CLEANED UP AND ASSESSS SKIN CONDITION. REFUSED TO BE CLEANED UP. HAVE COLOSTOMY EMPTIED. STATES "NO, I DON'T WANT TO DO THAT RIGHT NOW. " PT REFUSED SKIN ASSESSMENT
[2020-06-21] MEDS: MORPHINE SULFATE INJ 4 MG/ML DISP.SYRIN IV PRN ×11 (01:01→22:05)
[2020-06-21] MEDS ORDERED: IPRATROPIUM NEB FS 0.5 MG/2.5 ML AMPUL.NEB ONE (03:39)
--- NOTE | 2020-06-21 05:04 | NUR ---
AGAIN PATIENT OFFERED TO BE CLEANED UP AND ASSESSS SKIN CONDITION. REFUSED TO BE CLEANED UP. HAVE COLOSTOMY EMPTIED. STATES "NO, LEAVE ME ALONE. ILL DO IT IN THE AM. " PT REFUSED SKIN ASSESSMENT
--- NOTE | 2020-06-21 07:01 | NUR ---
RN PM CLOSING NOTE DISCUSSED WHAT CODE STATUS PATIENT WANTED PATIENT STATES ,"I WANT TO BE DNR, I DON'T WANT TO BE RESUSCITATED." PT MEDICATED FOR PAIN PER ORDERS. PT REPORTS SOME RELIEF. JUSTYN PICC LINE INTACT. PORTS FLUSHED IVF RUNNING ORDERED. AGAIN PATIENT OFFERED TO BE CLEANED UP AND ASSESSS SKIN CONDITION. REFUSED TO BE CLEANED UP. HAVE COLOSTOMY EMPTIED. STATES "NO, THANKS, I PROMISE TO DO IT LATER. REAL SOON. " PT REFUSED SKIN ASSESSMENT WILL ENDORSE CARE TO AM SHIFT. BED DOWN LICKED SRX3 CALL LIGHT IN REACH. SKIN ASSESSMENT AND COLOSTOMY EVAL NOT PERFORMED PT REFUSED THROUGHOUT THE NIGHT AND REMAINED COVERED WITH BLANKETS.
[2020-06-21 07:31] LABS: BASOPHILS # (AUTO) 0.1 /CMM (0.0-0.2); BASOPHILS % (AUTO) 1.1 % (0.0-2.0); EOSINOPHILS % (AUTO) 0.9 % (0.0-6.0); HEMATOCRIT 27 % (39-51); HEMOGLOBIN 8.5 g/dL (13.5-17.5); LYMPHOCYTES # (AUTO) 1.3 /CMM (0.8-4.8); LYMPHOCYTES % (AUTO) 14.4 % (20.0-44.0); MEAN CORPUSCULAR HGB CONC 32 g/dl (31.0-36.0); MEAN CORPUSCULAR VOLUME 78 fL (80-96); MONOCYTES # (AUTO) 1.3 /CMM (0.1-1.30); MONOCYTES % (AUTO) 14.4 % (2.0-12.0); NEUTROPHILS # (AUTO) 6.3 /CMM (1.8-8.9); NEUTROPHILS % (AUTO) 69.2 % (43.0-81.0); PLATELET COUNT (AUTO) 433 /CMM (150-450); RED BLOOD CELL COUNT(AUTO) 3.42 MIL/uL (4.5-6.0); WHITE BLOOD COUNT (AUTO) 9.1 K/uL (4.3-11.0)
[2020-06-21] MEDS: PIPERACILLIN /TAZOBACTAM 3.375 G in IV D5W 100 ML IV SCH ×3 (07:52→23:11)
[2020-06-21 08:00] VITALS: BP 124/77
[2020-06-21 08:59] LABS: CALCIUM, SERUM 8.3 mg/dL (8.5-10.1); CREATININE 0.8 mg/dL (0.6-1.3); MAGNESIUM 1.8 mg/dL (1.8-2.4); POTASSIUM 3.7 mmol/L (3.5-5.1)
[2020-06-21] MEDS: ENSURE ENLIVE 237 ML LIQUID (VANILLA) PO SCH ×3 (09:00→18:45)
[2020-06-21] MEDS: ENOXAPARIN SODIUM 40 MG/0.4 ML DISP.SYRIN SQ SCH (09:13)
--- NOTE | 2020-06-21 10:30 | NUR ---
refusing much of care.colostomy draining sm. amt. loose stool.
--- NOTE | 2020-06-21 11:30 | NUR ---
medicated x2 so far this shift with morphine,vs stable.see on line bp.
[2020-06-21 11:32] VITALS: BP 124/83
--- NOTE | 2020-06-21 12:02 | NUR ---
dr. urena in and requested removal of perianal packing. pt. flatly refusing,states he will need to be knocked out.dr. urena ok'd to be done today or tomorrow,so tuesday rn to follow up.
[2020-06-21 13:34] VITALS: BP 114/71
[2020-06-21] MEDS: SOD FERRIC GLUC 125 MG in IV NS 0.9% 100 ML IV SCH (14:48)
[2020-06-21 16:00] VITALS: BP 118/75
[2020-06-21 18:26] VITALS: BP 113/76
[2020-06-21] MEDS: IV D5/0.45 NACL W/20 MEQ KCL 1L IV PRN ×2 (18:37)
--- NOTE | 2020-06-21 19:00 | NUR ---
pt. medicated x 5 this shift.cooperative and seems depressed.dr. medrano in and orders given.pt's sister calling in often.teary eyed and trying to support brother.
--- NOTE | 2020-06-21 19:20 | NUR ---
MS RN OPENING NOTES: RECEIVED PATIENT IN BED, AWAKE, A/O X4. WITH PAIN LEVEL 10/10 IN RECTUM AND ABDOMINAL AREAS. WITH THE SITTER AT THE BEDSIDE.PATIENT REFUSED TO BE ASSESSED THE SKIN AND RECTAL AREA, AND REFUSED TO BE TURNED AT THIS TIME. WITH BARRIOS CATHETER DRAINING LIGHT DAISY URINE. PER REPORTS PATIENT REFUSED REMOVAL OF THE RECTAL PACKING. WITH JUSTYN PICC LINE TRIPLE LUMEN, FLUSHED WITH 10CC NS, 2 PORTS - WHITE PORTS NO BLOOD RETURN. PATIENT REQUESTED TO HAVE HIS MORPHINE TO BE GIVEN Q 2HOURS, HE SAID THAT HE DID NOT SLEEP THE WHOLE NIGHT LAST NIGHT BECAUSE OF THE PAIN. ADVISED PATIENT THAT FOR TONIGHT HE WILL HAVE OXYGEN PER ME FOR OXYGENATION, PATIENT AGREED. CALL LIGHT WITHIN REACH. BED IN LOWEST AND LOCKED POSITION. O2 SAT WILL BE MONITORED FOR THE WHOLE SHIFT.
[2020-06-21 20:00] VITALS: BP 111/69
[2020-06-21] MEDS ORDERED: MIRTAZAPINE 15 MG TABLET PO SCH (21:00)
--- NOTE | 2020-06-21 21:00 | NUR ---
MS RN OPENING NOTE: MS RN OPENING NOTE: Received patient from Nettie SUAREZ. Patient in bed awake and alert. Patient complains of pain and rated his pain 10 on a 0-10 numerical scale on his abdominal and rectal area. Sitter on bedside. Patient refused to be assessed; would not remove the blanket for me to assess his skin, rectal area, and colostomy. Patient on davis catheter but would not let me assess davis. Noted drainage clear yellow. Refused removal of rectal packing. Noted Left upper arm tripple lumen PICC line; flushes well. Patent, no redness, or infiltration. Patient request to be administered pain medication every 2 hours. Educated patient on the use of Oxygen, nasal canula within reach. Safety precaution in place. Bed in the lowest level, alarm is on, breaks are on, and call light is within reach. Will keep monitoring patient and continue plan of care.
--- NOTE | 2020-06-21 21:17 | NUR ---
PATIENT REFUSED SCD'S.
--- NOTE | 2020-06-21 21:26 | NUR ---
REPORTS GIVEN TO SYBIL SUAREZ FOR CONTINUITY OF CARE.
[2020-06-21] MEDS: POLYETHYLENE GLYCOL 3350 17 GM POWD.PACK PO SCH (21:59)
--- NOTE | 2020-06-21 22:05 | NUR ---
MS RN NOTE: Patient complains of abdominal and rectal pain. Patient rates pain a 10 and describes it as aching and throbbing. Administered PRN Morphine per MD order. Will follow up.
--- NOTE | 2020-06-21 22:47 | NUR ---
MS RN NOTE: Reassessed patient pain. Patient rates pain 8 on a 0-10 scale and describes it as aching and throbbing. Patient stated medication is effective. Will continue to monitor.
--- NOTE | 2020-06-22 | NUR ---
MS RN NOTE: Patient had a bowel movement but refuses to be cleaned and changed. Educated patient on the risk and benefits and the need to be cleaned and changed but the patient still refused.
[2020-06-22] MEDS: MORPHINE SULFATE INJ 4 MG/ML DISP.SYRIN IV PRN ×12 (00:14→22:58)
--- NOTE | 2020-06-22 00:30 | NUR ---
MS RN NOTE: Went back to the patient's room to follow up and see if he wanted to be changed and cleaned after. Patient still refused. Educated patient of risk and benefits of not getting cleaned but the patient still refused. Will follow up.
--- NOTE | 2020-06-22 01:00 | NUR ---
MS RN NOTE: Went back to the patients room to follow up see if he we can clean and change him. Educated patient of risk and benefits and the need to change him to prevent skin breakdown. Patient agreed but was very uncooperative. He wanted to be cleaned fast and would not turn. Cleaned patient with Anette, used warm soap and water and pat dry.
[2020-06-22] MEDS: PIPERACILLIN /TAZOBACTAM 3.375 G in IV D5W 100 ML IV SCH ×2 (06:21→15:40)
--- NOTE | 2020-06-22 06:30 | NUR ---
MS RN CLOSING NOTE: Patient in bed sleeping comfortably. On room air; shows no signs of distress. No SOB. Breathing unlabored and equal. Bed in the lowest level, alarm is on, breaks are on, and call light is within reach. Will endorse to morning nurse.
[2020-06-22 06:49] LABS: BASOPHILS % (AUTO) 0.2 % (0.0-2.0); EOSINOPHILS % (AUTO) 1.6 % (0.0-6.0); HEMATOCRIT 28 % (39-51); HEMOGLOBIN 8.8 g/dL (13.5-17.5); LYMPHOCYTES # (AUTO) 1.5 /CMM (0.8-4.8); MEAN CORPUSCULAR HGB CONC 32 g/dl (31.0-36.0); MEAN CORPUSCULAR VOLUME 78 fL (80-96); MONOCYTES # (AUTO) 1.1 /CMM (0.1-1.30); MONOCYTES % (AUTO) 14.1 % (2.0-12.0); NEUTROPHILS # (AUTO) 4.8 /CMM (1.8-8.9); NEUTROPHILS % (AUTO) 64.1 % (43.0-81.0); PLATELET COUNT (AUTO) 493 /CMM (150-450); RED BLOOD CELL COUNT(AUTO) 3.54 MIL/uL (4.5-6.0); WHITE BLOOD COUNT (AUTO) 7.5 K/uL (4.3-11.0)
[2020-06-22 07:05] LABS: CALCIUM, SERUM 8.1 mg/dL (8.5-10.1); CREATININE 0.8 mg/dL (0.6-1.3); MAGNESIUM 2.2 mg/dL (1.8-2.4); PHOSPHORUS 3.3 mg/dL (2.5-4.9); POTASSIUM 3.6 mmol/L (3.5-5.1)
--- NOTE | 2020-06-22 07:50 | NUR ---
MS/RN OPENING NOTES RECEIVED PATIENT IN BED RESTING. PATIENT IS ALERT AND ORIENTED X 3. PATIENT C/O OF PAIN AROUND RECTUM AREA 08/07 MEDICATED WITH MORPHINE 4 MG PER ORDER. NO SOB OR RESPIRATORY DISTRESS NOTED. PATIENT BREATHING IS EVEN AND UNLABORED. PATIENT REFUSED BODY ASSESSMENT AT THIS TIME. PATIENT HAS RIGHT FOREARM #18 G INTACT AND LEFT PICC ON ARM INTACT. SAFETY MEASURES ARE IN PLACE, BED IS LOCKED AND PLACE IN THE LOW POSITION SIDE RAILS UP X 2, ALARM ON. CALL LIGHT IS WITHIN REACH. WILL CONTINUE TO MONITOR PATIENT THOUGHT OUT SHIFT, SITTER AT BED SIDE.
[2020-06-22 08:00] VITALS: BP 107/71
[2020-06-22] MEDS: ENOXAPARIN SODIUM 40 MG/0.4 ML DISP.SYRIN SQ SCH (09:34)
[2020-06-22] MEDS: ENSURE ENLIVE 237 ML LIQUID (VANILLA) PO SCH ×3 (09:40→17:40)
--- NOTE | 2020-06-22 10:00 | NUR ---
MS RN NOTE: Patient refuses to be cleaned and changed. Educated patient on the risk and benefits and the need to be cleaned and changed but the patient still continue to refused.
--- NOTE | 2020-06-22 12:01 | NUR ---
MS RN NOTE: Reassessed patient pain. Patient rates pain 6 on a 0-10 scale and describes it as aching . Patient stated medication is not effective. Will continue to monitor.
[2020-06-22 16:00] VITALS: BP 109/68
[2020-06-22] MEDS: METRONIDAZOLE 500 MG TABLET PO SCH (18:34)
--- NOTE | 2020-06-22 18:50 | NUR ---
MS/RN CLOSING NOTES PATIENT IN BED RESTING. PATIENT IS ALERT AND ORIENTED X 3. NO SOB OR RESPIRATORY DISTRESS NOTED. PATIENT BREATHING IS EVEN AND UNLABORED. PATIENT REFUSED BODY ASSESSMENT DURING THE SHIFT, DID NOT WANT COLOSTOMY BAG TO BE CHECKED DURING SHIFT. PATIENT REFUSED CARE FROM NURSE AND ENDOSCOPY RN. PATIENT DID NOT WANT TO BE CLEAN OR LINENS CHANGED. PATIENT IS CONSTANTLY ASKING FOR PAIN MEDS, PAIN MEDS. GIVEN Q 2 HRS ORDER . PATIENT HAS RIGHT FOREARM #18 G INTACT AND LEFT PICC ON ARM INTACT. PATIENT NEEDS HAVE BEEN MET TO THE BEST OF STAFF ABILITY. PATIENT IS IN NO DISTRESS. SAFETY MEASURES ARE IN PLACE, BED IS LOCKED AND PLACE IN THE LOW POSITION SIDE RAILS UP X 2, ALARM ON. CALL LIGHT IS WITHIN REACH. WILL ENDORSE CARE TO CANE SPLICER NURSE.
--- NOTE | 2020-06-22 19:40 | NUR ---
MS RN OPENING NOTES: RECEIVED PATIENT IN BED, AWAKE, A/O X4. COMPLAINED OF PAIN 10/10, MORPHINE IV GIVEN BY THE DAYSHIFT RN. CALL LIGHT WITHIN REACH. BED IN LOWEST AND LOCKED POSITION. WITH THE SITTER AT THE BEDSIDE. PATIENT HAS BEEN REFUSING REMOVAL OF THE PERIANAL PACKING, CHARGE NURSE KEN AWARE. WITH 2 COLOSTOMY INTACT, DRAINING LIQUIDY BROWNISH COLOR STOOL, NO LEAKING NOTED. WITH SURGICAL DRESSING CLEAN DRY AND INTACT. PATIENT REFUSED SCD'S.
[2020-06-22 20:00] VITALS: BP 107/71
[2020-06-22] MEDS: IV D5/0.45 NACL W/20 MEQ KCL 1L IV PRN ×2 (20:04)
[2020-06-22] MEDS ORDERED: MIRTAZAPINE 15 MG TABLET PO SCH (21:00)
[2020-06-22] MEDS: CEFAZOLIN 1 GM in IV D5W 50 ML IV SCH (21:14)
[2020-06-22] MEDS: POLYETHYLENE GLYCOL 3350 17 GM POWD.PACK PO SCH (21:17)
--- NOTE | 2020-06-22 23:07 | NUR ---
PATIENT HAD BM, VERY SOFT, BROWNISH COLOR, FOUL ODOR STOOL, PATIENT NOW AGREED TO BE CLEANED. RIGHT BUTTOCK SURGICAL WOUND OPEN TO AIR, NO PACKING SEEN, ASKED PATIENT IF THE DOCTOR REMOVED THE PACKING, PATIENT REPLIED " NO, I POOPED IT OUT. SACRAL SKIN IS INTACT, NO REDNESS, APPLIED Z-GUARD AND MEPILEX DRESSING. ENCOURAGED TO TURN TO SIDES. O2 AT 3L/MIN. PER NASAL CANNULA.
--- NOTE | 2020-06-22 23:34 | NUR ---
SCROTAL REDNESS AND SWELLING NOTED.
[2020-06-23] MEDS: MORPHINE SULFATE INJ 4 MG/ML DISP.SYRIN IV PRN ×9 (01:16→17:41)
[2020-06-23] MEDS: METRONIDAZOLE 500 MG TABLET PO SCH ×3 (03:13→17:40)
[2020-06-23] MEDS: CEFAZOLIN 1 GM in IV D5W 50 ML IV SCH ×2 (05:04→13:15)
[2020-06-23] MEDS: IV D5/0.45 NACL W/20 MEQ KCL 1L IV PRN ×2 (05:10)
--- NOTE | 2020-06-23 07:06 | NUR ---
MS RN CLOSING NOTES: PATIENT IN BED, ASLEEP. WITH SITTER AT THE BEDSIDE. CALL LIGHT WITHIN REACH. BED IN LOWEST AND LOCKED POSITION. NO SOB. VITALS STABLE.
--- NOTE | 2020-06-23 07:10 | NUR ---
RN OPENING NOTES PATIENT IN BED RESTING. SITTER AT BEDSIDE. NOT IN ANY FORM OF DISTRESS. NO SOB. COMPLIANTS OF PAIN, JUST MEDICATED WITH MORPHINE IV BY ERICK ALBERT. IV ACCESS INTACT AND PATENT. SAFETY MEASURES IN PLACE. BED IN LOW/LOCKED POSITION. SIDERAILS UP, CALL LIGHT IN REACH. WILL MONITOR ACCORDINGLY.
[2020-06-23 07:24] LABS: BASOPHILS # (AUTO) 0.1 /CMM (0.0-0.2); BASOPHILS % (AUTO) 0.6 % (0.0-2.0); EOSINOPHILS % (AUTO) 1.6 % (0.0-6.0); HEMATOCRIT 28 % (39-51); HEMOGLOBIN 9.1 g/dL (13.5-17.5); LYMPHOCYTES # (AUTO) 1.5 /CMM (0.8-4.8); LYMPHOCYTES % (AUTO) 15.1 % (20.0-44.0); MEAN CORPUSCULAR HGB CONC 32 g/dl (31.0-36.0); MEAN CORPUSCULAR VOLUME 78 fL (80-96); MONOCYTES # (AUTO) 0.9 /CMM (0.1-1.30); MONOCYTES % (AUTO) 8.9 % (2.0-12.0); NEUTROPHILS # (AUTO) 7.1 /CMM (1.8-8.9); NEUTROPHILS % (AUTO) 73.8 % (43.0-81.0); PLATELET COUNT (AUTO) 534 /CMM (150-450); WHITE BLOOD COUNT (AUTO) 9.6 K/uL (4.3-11.0)
[2020-06-23 07:27] LABS: CALCIUM, SERUM 8.4 mg/dL (8.5-10.1); CREATININE 0.9 mg/dL (0.6-1.3); MAGNESIUM 2.2 mg/dL (1.8-2.4); PHOSPHORUS 2.7 mg/dL (2.5-4.9); POTASSIUM 3.4 mmol/L (3.5-5.1)
[2020-06-23] MEDS: ENOXAPARIN SODIUM 40 MG/0.4 ML DISP.SYRIN SQ SCH (09:24)
[2020-06-23] MEDS: ENSURE ENLIVE 237 ML LIQUID (VANILLA) PO SCH ×3 (09:30→17:32)
--- NOTE | 2020-06-23 10:00 | NUR ---
RN NOTES OFFERED TO BE CLEANED UP BUT PATIENT REFUSED. REFUSED SKIN ASSESSMENT WELL. EXPLAINED RISK AND BENEFIT BUT STILL REFUSED. PATIENT YELLED "I JUST WANNA BE LEFT ALONE, DAMMIT!!!".
--- NOTE | 2020-06-23 12:00 | NUR ---
RN NOTES REFUSED REPOSITIONING. EXPLAINED RISK AND BENEFITS BUT STILL REFUSED. STATED "LEAVE ME FOR NOW PLEASE".
[2020-06-23] MEDS ORDERED: POTASSIUM CHLORIDE 20 MEQ TAB.PRT.SR PO ONE ×2 (12:30→12:43)
[2020-06-23] MEDS ORDERED: METR500T PO (13:40)
[2020-06-23] MEDS ORDERED: LACT-246 PO (13:40)
[2020-06-23] MEDS ORDERED: CEFA1PIG IV (13:40)
[2020-06-23] MEDS ORDERED: ENOX40DI SQ (13:40)
[2020-06-23] MEDS ORDERED: MIRT15TA PO (13:40)
[2020-06-23] MEDS ORDERED: POLY17PO4 PO (13:40)
[2020-06-23] MEDS ORDERED: HYDR-4384 PO (13:40)
--- NOTE | 2020-06-23 15:00 | NUR ---
Dr Blanchard at bedside. checked patient's perianal packing. Per , "its not there anymore". MD ordered to dc davis. Patient for discharge today
[2020-06-23 15:59] VITALS: BP 96/61
--- NOTE | 2020-06-23 18:45 | NUR ---
report given to ERICK Lawrence from [facility]. Dc instructions given, to cont ABX, and to follow up with Dr Blanchard. Verbalized understanding
--- NOTE | 2020-06-23 18:50 | NUR ---
home meds returned to patient
--- NOTE | 2020-06-23 19:00 | NUR ---
endorsed to ERICK Rosas. patient in stable condition. all due meds given as ordered. assisted with adls. for discharged tonight. bed in low/locked psotiion sideraisl upx2, call light in reach.
--- NOTE | 2020-06-23 19:20 | NUR ---
MS FORGE OPERATOR NOTES PATIENT WAS PICKED UP VIA GURNEY. A/O X4. SHOWED NO SIGNS OF DISTRESS. DISCHARGE PAPERWORK SIGNED. BELONGINGS LIST SIGNED. COPIES OF PAPERWORK PLACED IN PATIENT'S CHART. L UPPERARM PICC LINE LEFT IN PLACE FOR CONTINUED ANTIBIOTICS AT SNF. DAY NURSE ENDORSED REPORT TO SNF DURING HIS SHIFT.
== END 2020-06-23 19:30 | DRG 329 ==
LOC: ER 20:38 → MED 06-17 03:01
PROVIDERS: ADMIT Registered Nurse; ATTEND Registered Nurse
PROC: 0DTN0ZZ Resection of Sigmoid Colon, Open Approach (ICD-10-PCS; principal; 2020-06-19)
PROC: 0D1N0Z4 Bypass Sigmoid Colon to Cutaneous, Open Approach (ICD-10-PCS; 2020-06-19)
PROC: 0D9Q0ZZ Drainage of Anus, Open Approach (ICD-10-PCS; 2020-06-19)
DX: C20 Malignant neoplasm of rectum (principal); A41.9 Sepsis, unspecified organism; E44.0 Moderate protein-calorie malnutrition; E87.1 Hypo-osmolality and hyponatremia; C78.7 Secondary malignant neoplasm of liver and intrahepatic bile duct; K61.2 Anorectal abscess; L03.315 Cellulitis of perineum; E86.0 Dehydration; D64.9 Anemia, unspecified; E87.6 Hypokalemia; D50.9 Iron deficiency anemia, unspecified; Z85.038 Personal history of other malignant neoplasm of large intestine; Z79.899 Other long term (current) drug therapy; Z91.19 Patient's noncompliance with other medical treatment and regimen; Z59.0 Homelessness; Z66 Do not resuscitate; Z93.3 Colostomy status; I27.20 Pulmonary hypertension, unspecified; F31.9 Bipolar disorder, unspecified; F11.11 Opioid abuse, in remission; Z72.0 Tobacco use; D47.3 Essential (hemorrhagic) thrombocythemia; B96.20 Unspecified Escherichia coli [E. coli] as the cause of diseases classified elsewhere
CPT/HCPCS: 36415; 71045-TC; 72197-TC; 80048-TC; 80061-TC; 80076-TC; 82962-TC; 83605-TC; 83735-TC; 84100-TC; 85025-TC; 85730-TC; 86850-TC; 87040-TC; 87070-TC; 87081-TC; 87086-TC; 87186-TC; 88307-TC; A9579; G0378; J0690; J1100; J1650; J1885; J2250; J2270; J2405; J2543; J2704; J2916; J3010; J3480; J3490; J7030; J7040; J7050; J7060; U0003-CS

== ENCOUNTER 2020-07-14 13:59 | Outpatient (CLI) | payer MEDICARE, OTHER ==
[~2020-07-14 13:59] MED LIST changes: +CEFA1PIG IV; -CYCL10TA9 MT; -DEXT20TA6 MT; +ENOX40DI SQ; -HYDR-3980 MT; +HYDR-4384 PO; +LACT-246 PO; +METR500T PO; +MIRT15TA PO; -NALO4SPR BNOSTRILS; +POLY17PO4 PO
[2020-07-14 15:59] LABS: BASOPHILS # (AUTO) 0.1 /CMM (0.0-0.2); BASOPHILS % (AUTO) 1.1 % (0.0-2.0); EOSINOPHILS % (AUTO) 4.3 % (0.0-6.0); HEMATOCRIT 28 % (39-51); HEMOGLOBIN 8.9 g/dL (13.5-17.5); LYMPHOCYTES # (AUTO) 1.7 /CMM (0.8-4.8); LYMPHOCYTES % (AUTO) 24.2 % (20.0-44.0); MEAN CORPUSCULAR HGB CONC 32 g/dl (31.0-36.0); MEAN CORPUSCULAR VOLUME 82 fL (80-96); MONOCYTES # (AUTO) 0.7 /CMM (0.1-1.30); NEUTROPHILS # (AUTO) 4.1 /CMM (1.8-8.9); NEUTROPHILS % (AUTO) 60.4 % (43.0-81.0); PLATELET COUNT (AUTO) 496 /CMM (150-450); RED BLOOD CELL COUNT(AUTO) 3.41 MIL/uL (4.5-6.0); WHITE BLOOD COUNT (AUTO) 6.9 K/uL (4.3-11.0)
[2020-07-14 16:17] LABS: ALBUMIN 2.8 g/dL (3.4-5.0); BILIRUBIN,TOTAL 0.2 mg/dL (0.2-1.0); CREATININE 0.9 mg/dL (0.6-1.3); POTASSIUM 4.1 mmol/L (3.5-5.1)
== END 2020-07-14 23:59 | disposition home or self-care (01) ==
LOC: ER 13:59
PROVIDERS: ATTEND Internal Medicine Hematology & Oncology
DX: Z45.2 Encounter for adjustment and management of vascular access device (principal); C20 Malignant neoplasm of rectum
CPT/HCPCS: 36415; 71045; 80053; 36569; 82378; 85025; C1751

== ENCOUNTER 2021-05-10 01:59 | Inpatient (IN) | payer MEDICARE, OTHER ==
[~2021-05-10] VITALS: Ht 167.6 cm; Wt 54.6 kg
[~2021-05-10 01:59] MED LIST changes: +MIRT-121 PO; -MIRT15TA PO
--- NOTE | 2021-05-10 01:59 | NUR ---
PER STAFF AT SNF; AGGRESSIVE BEHAVIOR. CALM AND COOPERATIVE , DENIES SI/HI, PT TO BED 15, COOPERATIVE WITH STAFF. DENIES ANY SOB/CP. VSS .PENDING ER PROVIDER SHAUN
[2021-05-10 04:15] LABS: BASOPHILS # (AUTO) 0.1 /CMM (0.0-0.2); BASOPHILS % (AUTO) 1.3 % (0.0-2.0); EOSINOPHILS % (AUTO) 4.9 % (0.0-6.0); HEMATOCRIT 31 % (39-51); HEMOGLOBIN 10.3 g/dL (13.5-17.5); LYMPHOCYTES # (AUTO) 0.4 /CMM (0.8-4.8); LYMPHOCYTES % (AUTO) 8.2 % (20.0-44.0); MEAN CORPUSCULAR HGB CONC 33 g/dl (31.0-36.0); MEAN CORPUSCULAR VOLUME 92 fL (80-96); MONOCYTES # (AUTO) 0.8 /CMM (0.1-1.30); MONOCYTES % (AUTO) 14.9 % (2.0-12.0); NEUTROPHILS # (AUTO) 3.9 /CMM (1.8-8.9); NEUTROPHILS % (AUTO) 70.7 % (43.0-81.0); PLATELET COUNT (AUTO) 196 /CMM (150-450); RED BLOOD CELL COUNT(AUTO) 3.35 MIL/uL (4.5-6.0); WHITE BLOOD COUNT (AUTO) 5.5 K/uL (4.3-11.0)
[2021-05-10 04:29] LABS: CALCIUM, SERUM 8.5 mg/dL (8.5-10.1); CARBON DIOXIDE 32 mmol/L (21-32); CHLORIDE 100 mmol/L (98-107); CREATININE 0.8 mg/dL (0.6-1.3); GLUCOSE 131 mg/dL (74-106); POTASSIUM 3.5 mmol/L (3.5-5.1); SODIUM SERUM 137 mmol/L (136-145); UREA NITROGEN, BLOOD 12 mg/dL (7-18)
[2021-05-10 04:49] LABS: ALANINE AMINOTRANSFERASE 59 U/L (12-78); ALBUMIN 2.6 g/dL (3.4-5.0); ALCOHOL, BLOOD < 3 mg/dL (0-0); ALKALINE PHOSPHATASE 251 U/L (46-116); ASPARTATE AMINOTRANSFERASE 45 U/L (15-37); BILIRUBIN,DIRECT 0.4 mg/dL (0.0-0.2); BILIRUBIN,TOTAL 0.7 mg/dL (0.2-1.0); TOTAL PROTEIN, SERUM 5.9 g/dL (6.4-8.2)
[2021-05-10 04:51] LABS: ACETAMINOPHEN 0 ug/ml (10-30)
--- NOTE | 2021-05-10 10:41 | NUR ---
SISTER MARQUEZ CALLED FOR UPDATE. CONTACT # [phone]
[2021-05-10] MEDS ORDERED: BISA10SU11 RC (10:43)
[2021-05-10] MEDS ORDERED: SENN-301 PO (10:43)
[2021-05-10] MEDS ORDERED: MAGN400O6 PO (10:43)
[2021-05-10] MEDS ORDERED: ONDA4TAB5 PO (10:43)
[2021-05-10] MEDS ORDERED: ACET-868 PO (10:43)
[2021-05-10] MEDS ORDERED: METH12VI SQ (10:43)
[2021-05-10] MEDS ORDERED: HYDR-4303 PO (10:43)
[2021-05-10] MEDS ORDERED: METH10TA2 PO (10:43)
[2021-05-10] MEDS ORDERED: PANT40TA2 PO (10:43)
[2021-05-10] MEDS ORDERED: NA P133E RC (10:43)
--- NOTE | 2021-05-10 11:37 | NUR ---
RECEIVED A CALL FROM [facility]. PER [facility] CENTRAL SUPPLY TECH PT ACCEPTED AT [facility]. ER PHONE NUMBER [phone]. JAG PSYCH ENCINO: [phone].
--- NOTE | 2021-05-10 11:46 | NUR ---
CALLED [facility] FOR TRANSPORT TO [place]. ETA 45-60 MINUTES.
[2021-05-10] MEDS ORDERED: OLANZAPINE 5 MG TABLET PO SCH (12:30)
[2021-05-10] MEDS ORDERED: OLANZAPINE 10 MG TABLET PO SCH (12:30)
[2021-05-10] MEDS ORDERED: HYDROCODONE/APAP 10/325MG TABLET ONE (12:34)
[2021-05-10] MEDS ORDERED: OLANZAPINE 5 MG TABLET ONE (12:34)
[2021-05-10] MEDS: HYDROCODONE/APAP 10/325MG TABLET PO PRN ×2 (12:41→21:46)
--- NOTE | 2021-05-10 13:24 | NUR ---
NURSING SUP GAVE 217-B. NURSING SUP WILL CALL WHEN BED IS READY.
--- NOTE | 2021-05-10 14:18 | NUR ---
REPORT GIVEN TO JAMILA SUAREZ AT [facility]. PT AWAITING TRANSFER TO FLOOR.
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
[2021-05-10 16:00] VITALS: BP 130/65
[2021-05-10] MEDS ORDERED: MAGNESIUM HYDROXIDE 30 ML UDC PO PRN (16:00)
[2021-05-10] MEDS ORDERED: BLOOD SUGAR DIAGNOSTIC 1 EACH STRIP IN ONE (16:00)
[2021-05-10] MEDS ORDERED: TEMAZEPAM 7.5 MG CAPSULE PO PRN (16:00)
[2021-05-10] MEDS ORDERED: MAG HYDROX/AL HYDROX/SIMETH 30 ML UDC PO PRN (16:00)
[2021-05-10] MEDS ORDERED: LORAZEPAM 0.5 MG TABLET PO PRN (16:00)
[2021-05-10 16:14] VITALS: BP 113/72
--- NOTE | 2021-05-10 16:54 | NUR ---
GPS RN NOTE: PATIENT AGITATED IRRITABLE, VERY ANXIOUS ATIVAN 0.5 MG PO PRN GIVEN PER ORDER
[2021-05-10 20:27] VITALS: BP 100/55
--- NOTE | 2021-05-10 21:48 | NUR ---
Pt c/o abdominal pain 06/06. [place] 10/325 mg po prn given as ordered. Will continue to monitor.
--- NOTE | 2021-05-10 22:58 | NUR ---
Post 1 hr [place] effective. IA 0/10. Will continue to monitor. Frequent visual check done for safety.
[2021-05-11] MEDS: HYDROCODONE/APAP 10/325MG TABLET PO PRN ×3 (03:59→21:06)
--- NOTE | 2021-05-11 04:01 | NUR ---
Pt c/o abdominal pain 06/06. [place] 10/325 mg po prn given as ordered. Will continue to monitor.
--- NOTE | 2021-05-11 05:01 | NUR ---
Post 1 hr [place] prn effective. IA 0/10. Will continue to monitor.
[2021-05-11 08:00] VITALS: BP 102/64
[2021-05-11] MEDS: NICOTINE PATCH (14MG) 14 MG PATCH.TD24 TD SCH (09:04)
--- NOTE | 2021-05-11 14:32 | NUR ---
Facility Contact: Fani ([phone]) from [facility] contacted the SW and stated that the pt will be readmitted to their facility once stable.
[2021-05-11 16:00] VITALS: BP 96/64
[2021-05-11 16:58] LABS: ALBUMIN 2.9 g/dL (3.4-5.0); BILIRUBIN,TOTAL 0.7 mg/dL (0.2-1.0); CALCIUM, SERUM 8.4 mg/dL (8.5-10.1); CREATININE 0.9 mg/dL (0.6-1.3); POTASSIUM 3.6 mmol/L (3.5-5.1); TOTAL PROTEIN, SERUM 6.7 g/dL (6.4-8.2)
[2021-05-11 16:59] LABS: CHOLESTEROL 185 mg/dL (<200); HDL CHOLESTEROL 46 mg/dL (40-60); LDL 108 mg/dL (0-99); TRIGLYCERIDES 37 mg/dL (30-150)
[2021-05-11] MEDS: DIVALPROEX SODIUM 250 MG TABLET.DR PO SCH ×2 (17:00→21:10)
[2021-05-11] MEDS: LORAZEPAM 1 MG TABLET PO PRN (19:43)
[2021-05-11 20:00] VITALS: BP 97/59
--- NOTE | 2021-05-11 21:11 | NUR ---
CONSENT SIGNED. FIRST DOSE OF DEPAKOTE ADMINISTERED .
[2021-05-11] MEDS: TEMAZEPAM 15 MG CAPSULE PO PRN (22:13)
[2021-05-11] MEDS: ACETAMINOPHEN 325 MG TABLET PO PRN (22:13)
[2021-05-12] MEDS: LORAZEPAM 1 MG TABLET PO PRN ×2 (00:19→21:37)
[2021-05-12] MEDS: HYDROCODONE/APAP 10/325MG TABLET PO PRN ×4 (02:42→20:48)
[2021-05-12 08:00] VITALS: BP 149/79
[2021-05-12] MEDS: NICOTINE PATCH (14MG) 14 MG PATCH.TD24 TD SCH (08:33)
[2021-05-12] MEDS: DIVALPROEX SODIUM 250 MG TABLET.DR PO SCH ×3 (08:33→16:53)
--- NOTE | 2021-05-12 09:00 | NUR ---
RN NOTE- PT DISHEVELED, IRRITABLE WITHDRAWN POOR EYE CONTACT MINIMAL INTERACTION DENIES ALL .
--- NOTE | 2021-05-12 11:44 | NUR ---
WOUND CARE CONSULT: PT HAS COLOSTOMY POUCH WHICH IS INTACT AND PATENT. PT ABLE TO DO HIS OWN COLOSTOMY DEVICE CHANGES. CURRENT CINDY SCORE IS 21. WILL SEE PRN.
--- NOTE | 2021-05-12 14:31 | NUR ---
Family Contact: SW called the pts sister, Delmis ([phone]), and left a voicemail stating that the pt is not going to be discharged today and that his hold was extended to a 14 day hold.
[2021-05-12 16:00] VITALS: BP 110/69
--- NOTE | 2021-05-12 17:00 | NUR ---
RN NOTE- PT SEEMS TO BE WITHDRAWING FROM MEDS. PAST HX METHADONE USE FOR HEROIN USE. METHADONE STOPPED AT ADMISSION. NOTIFIED DR LY TO SEE IF APPROPRIATE TO ADMINISTER ITS ON MED RECON. DR LY AWARE PT USING NORCO Q6 MOSTLY ON THE CLOCK, COLD, SWEATING, IRRITABLE WITH LEG PAIN AND CRAMPS.
[2021-05-12 20:00] VITALS: BP 123/83
[2021-05-12] MEDS: ACETAMINOPHEN 325 MG TABLET PO PRN (22:34)
[2021-05-12] MEDS: TEMAZEPAM 15 MG CAPSULE PO PRN (22:34)
[2021-05-13] MEDS: HYDROCODONE/APAP 10/325MG TABLET PO PRN ×4 (03:21→21:14)
[2021-05-13] MEDS: LORAZEPAM 1 MG TABLET PO PRN (04:02)
[2021-05-13 08:00] VITALS: BP 126/93
[2021-05-13] MEDS: NICOTINE PATCH (14MG) 14 MG PATCH.TD24 TD SCH (09:46)
[2021-05-13] MEDS: DIVALPROEX SODIUM 250 MG TABLET.DR PO SCH ×3 (09:46→16:44)
--- NOTE | 2021-05-13 13:51 | NUR ---
Family Contact: SW called the pts sister, Delmis ([phone]), and informed her that the pt is not being discharged soon and that the pt will return to [facility]. SW stated that he has been taking his medications and that he has been isolative. Pts sister asked that we get him involved and walking around.
--- NOTE | 2021-05-13 15:44 | NUR ---
Initial Discharge Plan: Pt was previously residing at [facility] located at [address] [place] [id number]; ([phone]). Per pt, he would like to be discharged back to the SNF. SW will work with the pt and the MD regarding appropriate discharge planning. SW will form a safe and proper discharge.
[2021-05-13 16:00] VITALS: BP 106/70
[2021-05-13 19:55] VITALS: BP 100/71
--- NOTE | 2021-05-13 21:15 | NUR ---
PRN [place] 10/325 mg PO given, patient c/o of pain 7/10, on abdominal area. Comfort measure provided. Will closely monitor.
--- NOTE | 2021-05-13 22:15 | NUR ---
Pain assessment: [place] effective, 0/10. Pain lying in bed quietly and comfortably. We will continue to monitor.
[2021-05-14] MEDS: HYDROCODONE/APAP 10/325MG TABLET PO PRN ×2 (04:53→18:14)
[2021-05-14 08:00] VITALS: BP 92/74
[2021-05-14] MEDS: NICOTINE PATCH (14MG) 14 MG PATCH.TD24 TD SCH (08:55)
[2021-05-14] MEDS: DIVALPROEX SODIUM 250 MG TABLET.DR PO SCH ×3 (08:55→17:50)
--- NOTE | 2021-05-14 09:33 | NUR ---
Probable Cause Hearing: Pts [id number] hold was upheld for grave disability.
[2021-05-14] MEDS: LORAZEPAM 1 MG TABLET PO PRN (19:50)
--- NOTE | 2021-05-14 19:52 | NUR ---
GPS-RN NOTES: ANXIETY PATIENT C/O FEELING ANXIOUS. PRN ATIVAN 1MG PO GIVEN. WILL CONTINUE TO MONITOR FOR PATIENT'S SAFETY.
[2021-05-14 21:00] VITALS: BP 118/65
[2021-05-14 21:11] VITALS: BP 126/59
[2021-05-15 08:00] VITALS: BP 98/58
[2021-05-15] MEDS: DIVALPROEX SODIUM 250 MG TABLET.DR PO SCH ×3 (08:33→16:29)
[2021-05-15] MEDS: HYDROCODONE/APAP 10/325MG TABLET PO PRN ×2 (08:33→21:25)
[2021-05-15] MEDS: NICOTINE PATCH (14MG) 14 MG PATCH.TD24 TD SCH (08:42)
[2021-05-15 16:00] VITALS: BP 86/71
[2021-05-15] MEDS: ENSURE ENLIVE 237 ML LIQUID (VANILLA) PO SCH (17:28)
--- NOTE | 2021-05-15 19:57 | NUR ---
GPS RN NOTE, RECEIVED PATIENT AWAKE AND IN BED, NO S/S OR COMPLAINTS OF PAIN AT THIS TIME. PATIENT IS DISPLAYING NO S/S OF APPARENT DISTRESS AT THIS TIME. PATIENT BREATHING IS UNLABORED WITH EQUAL RISE AND FALL OF THE CHEST. PATIENT IS ALERT AND ORIENTED X 3 ON ROOM AIR WITH A SPO2 97%. PATIENT IS COMPLIANT WITH MEDICATIONS, DEPRESSED, ANXIOUS AT TIMES, AND IS COOPERATIVE. PATIENT DENIES SUICIDAL AND HOMICIDAL IDEATIONS AT THIS TIME. PATIENT ASSISTED WITH TURNING AND REPOSITIONING Q2HR AND PRN FOR COMFORT AND CIRCULATION. PATIENT HAS NO NEEDS AT THIS TIME. PATIENT EDUCATED ON THE USE OF THE CALL LIGHT. PATIENT BED SIDE RAILS UP X 2 FOR SAFETY. PATIENT BED IS LOCKED, LOW, WITH BED ALARM ON. WILL CONTINUE TO MONITOR THIS PATIENT Q15 MINUTES WITH THE HELP OF STAFF TO MAINTAIN SAFETY.
[2021-05-15 20:00] VITALS: BP 93/63
--- NOTE | 2021-05-15 21:25 | NUR ---
GPS RN NOTE, PATIENT HAS A COMPLAINT OF CHRONIC SACRUM PAIN AT 8 OUT 10 ON THE PAIN SCALE AND IS REQUESTING NORCO AT THIS TIME. PATIENT VITAL SIGNS ARE STABLE. GAVE NORCO 10 - 325 1 TAB PO Q6HR PRN ORDERED. WILL REASSESS PAIN AND I WILL CONTINUE TO MONITOR THIS PATIENT.
[2021-05-16] MEDS: TEMAZEPAM 15 MG CAPSULE PO PRN ×2 (00:25→21:17)
--- NOTE | 2021-05-16 00:25 | NUR ---
GPS RN NOTE, PATIENT HAS A COMPLAINT OF NOT BEING ABLE TO SLEEP AND IS REQUESTING RESTORIL AT THIS TIME. PATIENT VITAL SIGNS ARE STABLE. GAVE RESTORIL 15MG PO Q HS PRN ORDERED. WILL REASSESS FOR INSOMNIA AND I WILL CONTINUE TO MONITOR THIS PATIENT.
[2021-05-16 08:00] VITALS: BP 146/67
[2021-05-16] MEDS: DIVALPROEX SODIUM 250 MG TABLET.DR PO SCH ×3 (08:06→16:21)
[2021-05-16] MEDS: HYDROCODONE/APAP 10/325MG TABLET PO PRN ×3 (08:07→22:31)
[2021-05-16] MEDS: ENSURE ENLIVE 237 ML LIQUID (VANILLA) PO SCH ×2 (08:09→17:32)
[2021-05-16] MEDS: NICOTINE PATCH (14MG) 14 MG PATCH.TD24 TD SCH (08:34)
[2021-05-16 16:00] VITALS: BP 111/65
[2021-05-16 20:00] VITALS: BP 109/64
[2021-05-16] MEDS ORDERED: DIVALPROEX SODIUM 250 MG TABLET.DR PO SCH (21:00)
--- NOTE | 2021-05-16 21:20 | NUR ---
GPS RN NOTES: PATIENT REQUESTED FOR SLEEP MEDICATION. RESTORIL 15MG/1CAP GIVEN PO PRN ORDERED AT 2116. WILL CONTINUE TO MONITOR
--- NOTE | 2021-05-16 22:34 | NUR ---
GPS RN NOTES: PATIENT REQUESTED FOR PAIN MEDICATION D/T ABDOMINAL PAIN. NORCO 10/325MG 1TAB GIVEN PO PRN ORDERED AT 2231. WILL CONTINUE TO MONITOR.
[2021-05-17] MEDS: LORAZEPAM 1 MG TABLET PO PRN (02:30)
--- NOTE | 2021-05-17 02:31 | NUR ---
GPS RN NOTES: PATIENT IS RESTLESS, ANXIOUS, PACING, IRRITABLE. ATIVAN 1MG 1TAB GIVEN PO PRN ORDERED AT 0230. WILL CONTINUE TO MONITOR.
[2021-05-17 07:31] LABS: BASOPHILS % (AUTO) 0.8 % (0.0-2.0); EOSINOPHILS % (AUTO) 3.5 % (0.0-6.0); HEMATOCRIT 33 % (39-51); LYMPHOCYTES # (AUTO) 0.4 /CMM (0.8-4.8); LYMPHOCYTES % (AUTO) 10.1 % (20.0-44.0); MEAN CORPUSCULAR HGB CONC 34 g/dl (31.0-36.0); MEAN CORPUSCULAR VOLUME 92 fL (80-96); MONOCYTES # (AUTO) 0.6 /CMM (0.1-1.30); MONOCYTES % (AUTO) 13.3 % (2.0-12.0); NEUTROPHILS % (AUTO) 72.3 % (43.0-81.0); PLATELET COUNT (AUTO) 183 /CMM (150-450); RED BLOOD CELL COUNT(AUTO) 3.56 MIL/uL (4.5-6.0); WHITE BLOOD COUNT (AUTO) 4.2 K/uL (4.3-11.0)
[2021-05-17 08:00] VITALS: BP 99/60
[2021-05-17] MEDS: DIVALPROEX SODIUM 250 MG TABLET.DR PO SCH ×2 (08:00→12:20)
[2021-05-17 08:19] LABS: ALBUMIN 2.5 g/dL (3.4-5.0); BILIRUBIN,TOTAL 0.6 mg/dL (0.2-1.0); CALCIUM, SERUM 8.2 mg/dL (8.5-10.1); CREATININE 0.8 mg/dL (0.6-1.3); POTASSIUM 3.5 mmol/L (3.5-5.1); TOTAL PROTEIN, SERUM 5.8 g/dL (6.4-8.2)
[2021-05-17] MEDS: NICOTINE PATCH (14MG) 14 MG PATCH.TD24 TD SCH ×2 (09:00→09:16)
[2021-05-17] MEDS: ENSURE ENLIVE 237 ML LIQUID (VANILLA) PO SCH ×2 (09:16→16:45)
[2021-05-17 16:00] VITALS: BP 88/58
[2021-05-17 20:00] VITALS: BP 100/62
[2021-05-17] MEDS: HYDROCODONE/APAP 10/325MG TABLET PO PRN (20:41)
[2021-05-17] MEDS: TEMAZEPAM 15 MG CAPSULE PO PRN (21:45)
[2021-05-18] MEDS: LORAZEPAM 1 MG TABLET PO PRN ×2 (00:07→13:23)
[2021-05-18 08:00] VITALS: BP 108/69
[2021-05-18] MEDS: ENSURE ENLIVE 237 ML LIQUID (VANILLA) PO SCH ×2 (08:45→18:03)
[2021-05-18] MEDS: HYDROCODONE/APAP 10/325MG TABLET PO PRN ×2 (08:46→23:42)
[2021-05-18] MEDS: NICOTINE PATCH (14MG) 14 MG PATCH.TD24 TD SCH (09:00)
--- NOTE | 2021-05-18 13:23 | NUR ---
RN NOTE :PATIENT C/O ANXIETY MEDICATED WITH ATIVAN 1 MG PO X1.
[2021-05-18 15:56] VITALS: BP 99/61
[2021-05-18 20:00] VITALS: BP 101/76
--- NOTE | 2021-05-18 21:30 | NUR ---
OMNICELL SYSTEM IS DOWN, UNABLE TO PULL OUT MEDICATIONS. CHAIN OF COMMAND INITIATED. NURSING COACH WIRER NOTIFIED. OMNICELL 24HOUR HELP DESK NOTIFIED, AWAITING DISPATCH RESIDUE FURNACE OPERATOR.
--- NOTE | 2021-05-18 23:52 | NUR ---
RN NOTE PT REQUESTED PAIN MEDICATION 07/07 C/O STOMACH PAIN, NORCO ADMINISTERED PRN ORDERED WILL CONT TO MONITOR CLOSELY.
--- NOTE | 2021-05-19 00:35 | NUR ---
pharmacy, [facility] notified regarding lack of access for medications, all medications given
[2021-05-19] MEDS: LORAZEPAM 1 MG TABLET PO PRN (04:39)
--- NOTE | 2021-05-19 05:45 | NUR ---
RN NOTE PT REQUESTED ATIVAN PRN 1MG , GIVEN ORDERED @0545 NORCO ADMINISTERED FOR PAIN STOMACH GIVEN ORDERED PRN
[2021-05-19] MEDS: HYDROCODONE/APAP 10/325MG TABLET PO PRN (05:50)
[2021-05-19 08:00] VITALS: BP 97/56
--- NOTE | 2021-05-19 08:00 | NUR ---
received pt. in am,alert and oriented x3.no specific complaints offered.skinwarm and dry.vs stable.anxious about being discharged.
[2021-05-19] MEDS: ENSURE ENLIVE 237 ML LIQUID (VANILLA) PO SCH (09:00)
--- NOTE | 2021-05-19 09:30 | NUR ---
Family Contact: SW called the pts sister, Delmis ([phone]), and informed her that the pt is going to be discharged today to [facility].
--- NOTE | 2021-05-19 09:54 | NUR ---
Discharge Note: Pt will be discharged to [facility] located at [address] [place] [address]; . Pt will be discharged via [facility] at 2PM. SW informed the pts sister, Delmis ([phone]), about the discharge. Upon discharge, the pt appears to be in a euthymic mood and presents with an anxious affect. Pt denies both suicidal and homicidal ideation as well as auditory and visual hallucinations. Pt appears to be alert and oriented x4 (time, place, self and situation). Pt appears to be groomed and appropriately dressed. Pt will be under the care of his psychiatrist, Dr. Gonzalez, located at [address] [facility], [address] [place] [address]; and his commercial real estate manager, Dr. Watters, located at [address] [address], [place] [address]; . The choice of vendor form and multidisciplinary exit care form were done, printed, signed, and given to the patient.
[2021-05-19] MEDS: GABAPENTIN 300 MG CAPSULE PO SCH ×2 (10:18→13:22)
[2021-05-19] MEDS: NICOTINE PATCH (14MG) 14 MG PATCH.TD24 TD SCH (10:18)
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
== END 2021-05-19 14:23 | DRG 885 ==
LOC: ER 02:03 → OBSER 11:58 → GPS 14:29
PROVIDERS: ADMIT Psychiatry & Neurology Psychiatry; ATTEND Nurse Practitioner Acute Care
DX: F39 Unspecified mood [affective] disorder (principal); Z93.3 Colostomy status; F11.93 Opioid use, unspecified with withdrawal; E44.0 Moderate protein-calorie malnutrition; F29 Unspecified psychosis not due to a substance or known physiological condition; F41.9 Anxiety disorder, unspecified; Z85.048 Personal history of other malignant neoplasm of rectum, rectosigmoid junction, and anus; Z79.01 Long term (current) use of anticoagulants; Z79.899 Other long term (current) drug therapy; F17.200 Nicotine dependence, unspecified, uncomplicated; D64.9 Anemia, unspecified; F31.9 Bipolar disorder, unspecified; Z20.822 Contact with and (suspected) exposure to COVID-19
CPT/HCPCS: 36415; 76705-TC; 80048-TC; 80053-TC; 80061-TC; 80076-TC; 80164-TC; 82140-TC; 84443-TC; 85025-TC; 87081-TC; C9803; G0480